=== PATIENT | female | born 1940 | race African-American/Black ===

== ENCOUNTER 2017-09-22 17:42 | Inpatient (IN) | payer OTHER ==
--- NOTE | 2017-09-22 19:21 | PDOC ---
History of Present Illness - General Chief Complaint: Rash Stated Complaint: RASH Time Seen by Provider: 09/22/17 18:25 History Source: Patient Exam Limitations: No Limitations - History of Present Illness Initial Comments: 09/22/17 19:17 Patient is a 77-year-old female history of diabetes, hypertension and high cholesterol, anorexia, refusing to eat only takes ensure. Brought in by daughter for evaluation of large ulceration to buttock and vagina. Patient is incontinent of urine and bowel. Denies fever. Past Medical History: Denies. Allergies: No known allergies Medications: See medication list Family History: Non-contributory Social History: Denies smoking, alcohol use, or IVDU Review of Systems GENERAL/CONSTITUTIONAL: No fever or chills. No weakness. No weight change. HEAD, EYES, EARS, NOSE AND THROAT: No change in vision. No ear pain or discharge. No sore throat. CARDIOVASCULAR: No chest pain or shortness of breath. RESPIRATORY: No cough, wheezing, or hemoptysis. GASTROINTESTINAL: No nausea, vomiting, diarrhea or constipation. No rectal bleeding. GENITOURINARY: No dysuria, frequency, or change in urination. MUSCULOSKELETAL: No joint or muscle swelling or pain. No neck or back pain. SKIN : Rash and ulceration to buttock and groin Physical Exam: GENERAL: The patient is awake, alert, and fully oriented, in no acute distress. EYES: Pupils equal, round and reactive to light, extraocular movements intact, sclera anicteric, conjunctiva clear. ENT: Ears normal, nares patent, oropharynx clear without exudates. Moist mucous membranes. No uvula deviation NECK: Normal range of motion, supple without lymphadenopathy, JVD, or masses. LUNGS: Breath sounds equal, clear to auscultation bilaterally. No wheezes, and no crackles. HEART: Regular rate and rhythm, normal S1 and S2 without murmur, rub or gallop. ABDOMEN: Soft, nontender, normoactive bowel sounds. No guarding, no rebound. No masses. No bruising or abrasions RECTAL : Unable to assess due to physical limitations in fast track, patient unable to lay down on examination table MUSCULOSKELETAL: Normal range of motion, no edema. No clubbing or cyanosis. No cords, erythema, or tenderness. No CVA Tenderness with fist. NEUROLOGICAL: Cranial nerves II through XII grossly intact. Normal speech, normal gait. SKIN: Warm, Dry, normal turgor, no rashes or lesions noted. Large stage IV pressure ulcer to buttock extending to vagina unable to assess size due to physical limitations in environment in fast track sent to main emergency department for higher level of care and evaluation Past History - Past Medical History Allergies/Adverse Reactions: Allergies Allergy/AdvReac Type Severity Reaction Status Date / Time No Known Allergies Allergy Verified 09/22/17 17:44 Home Medications: Ambulatory Orders Carvedilol [Coreg] 6.25 mg PO BID 12/17/14 Colesevelam HCl [Welchol] 625 mg PO BID 12/17/14 Cyanocobalamin [Vitamin B12 -] 1,000 mcg PO DAILY 12/17/14 Ergocalciferol (Vitamin D2) [Vitamin D2] 50,000 unit PO WEEKLY 12/17/14 Furosemide [Lasix -] 20 mg PO DAILY 12/17/14 Irbesartan 300 mg PO DAILY 12/17/14 Metformin HCl 850 mg PO DAILY 12/17/14 Risedronate Sodium [Actonel (Once-a-week)] 35 mg PO Q7D 12/17/14 Sitagliptin Phosphate [Januvia] 100 mg PO DAILY 12/17/14 Nicotine Patch [Nicoderm Patch -] 14 mg TD DAILY #30 patch 12/27/14 Rivaroxaban [Xarelto -] 15 mg PO BID #42 tab 12/27/14 Atorvastatin Ca [Lipitor] 20 mg NR ASDIR 09/22/17 Anemia: No Asthma: No Cancer: No Cardiac Disorders: No CVA: No COPD: No CHF: No Dementia: No Diabetes: Yes GI Disorders: No Disorders: No HTN: Yes Hypercholesterolemia: Yes Liver Disease: No Seizures: No Thyroid Disease: No - Surgical History Abdominal Surgery: No Appendectomy: No Cardiac Surgery: No Cholecystectomy: No Lung Surgery: No Neurologic Surgery: No Orthopedic Surgery: No - Immunization History Immunization Up to Date: No - Suicide/Smoking/Psychosocial Hx Smoking History: Current every day smoker Have you smoked in the past 12 months: Yes Number of Cigarettes Smoked Daily: 10 Information on smoking cessation initiated: No 'Breaking Loose' booklet given: 12/18/14 Hx Alcohol Use: Yes Drug/Substance Use Hx: No Substance Use Type: None Hx Substance Use Treatment: No *Physical Exam - Vital Signs Last Vital Signs Temp Pulse Resp BP Pulse Ox 98.6 F 98 H 20 150/83 100 09/22/17 17:45 09/22/17 17:45 09/22/17 17:45 09/22/17 17:45 09/22/17 17:45 Medical Decision Making - Medical Decision Making 09/22/17 19:21 A/P: Patient here for evaluation of stage IV decubitus ulcer to buttock extending to vagina unable to assess size because of physical restraints in fast track, patient unable to lay down on examination table. Patient sent to main emergency department for higher level care and evaluation. Case discussed with Karen charge nurse.
[2017-09-22] MEDS ORDERED: SODIUM CHLORIDE 1,000 ML IV STA (23:07)
[2017-09-22] MEDS ORDERED: PIPERACIL/TAZOB 3.375 GM 3.375 GM/50 ML PREMIX IVPB ONE (23:09)
[2017-09-22] MEDS ORDERED: VANCOMYCIN 1 GRAM (PRE-DOCKED) 1,000 MG/250 ML BAG IVPB ONE (23:09)
--- NOTE | 2017-09-22 23:10 | PDOC ---
*Physical Exam - Vital Signs Last Vital Signs Temp Pulse Resp BP Pulse Ox 98.6 F 98 H 20 150/83 100 09/22/17 17:45 09/22/17 17:45 09/22/17 17:45 09/22/17 17:45 09/22/17 17:45 - Physical Exam Comments: 09/23/17 00:31 The patient is a 77 year old female, with a significant past medical history of HTN, HLD, DM , EtOH abuse who presents to the emergency department with worsening vaginal and perirectal abscess. Patients daughter at bedside states the patient has been developing these ulcers for the past 2 months. Patient is incontinent of urine and bowel. Patient denies any fever, chills, nausea, vomiting,abdominal pain. ADULT EXAM GENERAL: Awake, alert, and fully oriented, in no acute distress HEAD: No signs of trauma EYES: PERRLA, EOMI, sclera anicteric, conjunctiva clear ENT: Auricles normal inspection, hearing grossly normal, nares patent, oropharynx clear without exudates. Moist mucosa NECK: Normal ROM, supple, no lymphadenopathy, JVD, or masses LUNGS: Breath sounds equal, clear to auscultation bilaterally. No wheezes, and no crackles HEART: Regular rate and rhythm, normal S1 and S2, no murmurs, rubs or gallops ABDOMEN: Soft, nontender, normoactive bowel sounds. No guarding, no rebound. No masses EXTREMITIES: Normal range of motion, no edema. No clubbing or cyanosis. No cords, erythema, or tenderness NEUROLOGICAL: Cranial nerves II through XII grossly intact. Normal speech, normal gait SKIN: Large perirectal abscess. Stage III decubiti involving robby anal ,robby vulvar and perineal area on the R side. Warm, Dry, normal turgor, no rashes or lesions noted. <Marce Mcqueen - Last Filed: 09/23/17 00:30> - Vital Signs Last Vital Signs Temp Pulse Resp BP Pulse Ox 98.6 F 98 H 20 150/83 100 09/22/17 17:45 09/22/17 17:45 09/22/17 17:45 09/22/17 17:45 09/22/17 17:45 <Fam Sibley - Last Filed: 09/23/17 01:21> ED Treatment Course - LABORATORY CBC & Chemistry Diagram: 09/22/17 23:45 09/22/17 23:45 <Marce Mcqueen - Last Filed: 09/23/17 00:30> - LABORATORY CBC & Chemistry Diagram: 09/22/17 23:45 09/22/17 23:45 - RADIOLOGY Radiology Studies Ordered: Category Date Time Status CHEST X-RAY PORTABLE* [RAD] Stat Radiology 09/22/17 23:07 Ordered <Fam Sibley - Last Filed: 09/23/17 01:21> Medical Decision Making - Medical Decision Making 09/22/17 23:55 Dr. Mayda holden via phone answering service. Patient's case discussed. 09/23/17 00:33 Documentation prepared by Marce Mcqueen, acting as medical review specialist for Fam Sibley MD/. <Marce Mcqueen - Last Filed: 09/23/17 00:30> *DC/Admit/Observation/Transfer <Marce Mcqueen - Last Filed: 09/23/17 00:30> - Attestations Physician Attestion: 09/22/17 23:10 I, Dr. Fam Sibley, attest that this document has been prepared under my direction and personally reviewed by me in its entirety. I further attest, that it accurately reflects all work, treatment, procedures and medical decision -making performed by me. <Fam Sibley - Last Filed: 09/23/17 01:21> Diagnosis at time of Disposition: Sacral decubitus ulcer, stage III, Perirectal cellulitis Alcohol dependence Qualifiers: Substance use status: uncomplicated Qualified Code(s): F10.20 - Alcohol dependence, uncomplicated; F10.20 - Alcohol dependence, uncomplicated; F10.20 - Alcohol dependence, uncomplicated Alcohol withdrawal syndrome Qualifiers: Complication of substance-induced condition: uncomplicated Qualified Code(s): F10.230 - Alcohol dependence with withdrawal, uncomplicated; F10.230 - Alcohol dependence with withdrawal, uncomplicated; F10.230 - Alcohol dependence with withdrawal, uncomplicated - Referrals Referrals: STAFF,NOT ON [Primary Care Provider] -
[2017-09-22] MEDS ORDERED: FOLIC ACID INJECTION - 1 MG, THIAMINE HCL 100 MG, MULTIVIT INJECTION ADULT 10 ML in SOD... IVPB ONE (23:49)
[2017-09-22] MEDS ORDERED: LORazepam 2 MG/ML SDV VIAL IVPUSH ONE (23:50)
[2017-09-22] MEDS ORDERED: CLINDAMYCIN 600MG PREMIX IVPB 50 ML IVPB ONE (23:57)
[2017-09-23 00:09] LABS: BASOPHIL 0.4 % (0-2.0); EOSINOPHIL 0.3 % (0-4.5); MCH 30.2 pg (25.7-33.7); MCHC 32.8 g/dl (32.0-36.0); MEAN PLT VOLUME 9.5 fl (7.5-11.1); NEUTROPHILS 73.8 % (42.8-82.8); PLATELET COUNT 365 K/MM3 (134-434); RDW 14.4 % (11.6-15.6); WHITE BLOOD COUNT 6.5 K/mm3 (4.0-10.0)
[2017-09-23] MEDS ORDERED: VANCOMYCIN 1 GRAM (PRE-DOCKED) 250 ML IVPB ONE (00:19)
[2017-09-23] MEDS ORDERED: PIPERACILLIN/TAZOB 3.375 GM 50 ML IVPB ONE (00:19)
[2017-09-23 00:24] LABS: VENOUS BLOOD GAS HCO3 23.3 meq/L (19-25); VENOUS PH 7.34 (7.32-7.42)
[2017-09-23 02:32] LABS: INR 1.08 (0.82-1.09); PROTHROMBIN TIME (PATIENT) 12.2 SEC (9.98-11.88)
[2017-09-23 02:35] LABS: ACTIVATED PTT 31.9 SECONDS (26.9-34.4)
[2017-09-23 02:44] LABS: ALBUMIN 2.7 g/dl (3.4-5.0); ALK PHOS 105 U/L (45-117); ANION GAP 12 (8-16); BILIRUBIN,TOTAL 0.5 mg/dL (0.2-1.0); C-REACTIVE PROTEIN 6.4 MG/DL (0.00-0.3); CALCIUM 9.2 mg/dL (8.5-10.1); CO2 25 mmol/L (21-32); CREATININE 0.6 mg/dL (0.55-1.02); GLUCOSE,RANDOM 133 mg/dL (74-106); SGOT/AST 17 U/L (15-37); SGPT/ALT 11 U/L (12-78); TOT PROT 8.5 g/dl (6.4-8.2)
[2017-09-23 02:47] LABS: CPK 38 IU/L (26-192); TROPONIN I < 0.02 ng/ml (0.00-0.05)
--- NOTE | 2017-09-23 04:18 | HP ---
CHIEF COMPLAINT: ulceration to perianal area PCP: Dr. Reina Thomas Darby HISTORY OF PRESENT ILLNESS: This is a 77 year old female with a past medical history significant for DM who presents with ulceration to perianal area. Pt and daughter report that she has had this for at least about 2months but only recently has it started causing her pain and the daughter reports there was some bleeding today and that prompted her to bring her mother into the hospital. Daughter reports mother hasn 't been taking any of her medications for quite some time although the pt reports last taking her medication a few days ago. Daughter also reports mother does not eat hardly at all or drink much water. Pt states that she drinks 3 ensures per day with little other intake. ER course was notable for: (1) CRP 6.4, ESR 106 (2) CT abd and pelvis with no focal drainable fluid collection (3) WBC 6.5, Lactic acid 1.9 Recent Travel: pt denies PAST MEDICAL HISTORY: DM HTN HLD DVT 2014 PAD PAST SURGICAL HISTORY: R superficial femoral artery angioplasty and stent placement 2014 Social History: Smokin/4 ppd Alcohol: 3 drinks 2-3 times per week, last drink on Tuesday Drugs: pt denies Family History: mother age 62, unknown, ? cancer father age 70, h/o COPD sister age 58, heart problem son with DM daughter with RA, HTN Allergies No Known Allergies Allergy (Verified 09/22/17 17:44) HOME MEDICATIONS: 3 Medication Instructions Recorded Carvedilol [Coreg] 6.25 mg PO BID 12/17/14 Colesevelam HCl [Welchol] 625 mg PO BID 12/17/14 Cyanocobalamin [Vitamin B12 -] 1,000 mcg PO DAILY 12/17/14 Ergocalciferol (Vitamin D2) 50,000 unit PO WEEKLY 12/17/14 [Vitamin D2] Furosemide [Lasix -] 20 mg PO DAILY 12/17/14 Irbesartan 300 mg PO DAILY 12/17/14 Metformin HCl 850 mg PO DAILY 12/17/14 Risedronate Sodium [Actonel 35 mg PO Q7D 12/17/14 (Once-a-week)] Sitagliptin Phosphate [Januvia] 100 mg PO DAILY 12/17/14 Nicotine Patch [Nicoderm Patch -] 14 mg TD DAILY #30 patch 01/30/15 Rivaroxaban [Xarelto -] 15 mg PO BID #42 tab 12/27/14 Atorvastatin Ca [Lipitor] 20 mg NR ASDIR 09/22/17 REVIEW OF SYSTEMS CONSTITUTIONAL: Present: malaise, loss of appetite Absent: fever, chills, diaphoresis, generalized weakness, weight change HEENT: Absent: rhinorrhea, nasal congestion, throat pain, throat swelling, difficulty swallowing, mouth swelling, ear pain, eye pain, visual changes CARDIOVASCULAR: Absent: chest pain, syncope, palpitations, irregular heart rate, lightheadedness , peripheral edema RESPIRATORY: Absent: cough, shortness of breath, dyspnea with exertion, orthopnea, wheezing, stridor, hemoptysis GASTROINTESTINAL: Absent: abdominal pain, abdominal distension, nausea, vomiting, diarrhea, constipation, melena, hematochezia GENITOURINARY: Absent: dysuria, frequency, urgency, hesitancy, hematuria, flank pain, genital pain MUSCULOSKELETAL: Absent: myalgia, arthralgia, joint swelling, back pain, neck pain SKIN: Present: "ulcer" to perineal area Absent: rash, itching, pallor HEMATOLOGIC/IMMUNOLOGIC: Absent: easy bleeding, easy bruising, lymphadenopathy, frequent infections ENDOCRINE: Absent: unexplained weight gain, unexplained weight loss, heat intolerance, cold intolerance NEUROLOGIC: Absent: headache, focal weakness or paresthesias, dizziness, unsteady gait, seizure, mental status changes, bladder or bowel incontinence PSYCHIATRIC: Absent: anxiety, depression, suicidal or homicidal ideation. no tactile disturbances or visual or auditory hallucinations reported PHYSICAL EXAMINATION Vital Signs - 24 hr 3 09/22/17 09/22/17 17:45 22:52 Temperature 98.6 F Pulse Rate 98 H Respiratory 20 Rate Blood Pressure 150/83 O2 Sat by Pulse 100 100 Oximetry (%) GENERAL: Awake, alert, and fully oriented, in no acute distress. + cachexia HEAD: Normal with no signs of trauma. EYES: Pupils equal, round and reactive to light, extraocular movements intact, sclera anicteric, conjunctiva clear. No lid lag. EARS, NOSE, THROAT: Ears normal, nares patent, oropharynx clear without exudates. Moist mucous membranes. NECK: Normal range of motion, supple without lymphadenopathy, JVD, or masses. LUNGS: Breath sounds equal, clear to auscultation bilaterally. No wheezes, and no crackles. No accessory muscle use. HEART: Regular rate and rhythm, normal S1 and S2 without murmur, rub or gallop. ABDOMEN: Soft, nontender, not distended, normoactive bowel sounds, no guarding, no rebound, no masses. No hepatomegaly or splenomegaly. Perianal and right distal labia noted with large growth, skin noted veruccal, pink, areas of friability. No definite area of abscess or fluid collection but noted with a brownish discharge. vagina noted with whitish discharge. MUSCULOSKELETAL: Normal range of motion at all joints. No bony deformities or tenderness. No CVA tenderness. UPPER EXTREMITIES: 2+ pulses, warm, well-perfused. No cyanosis. No clubbing. No peripheral edema. LOWER EXTREMITIES: 2+ pulses, warm, well-perfused. No calf tenderness. No peripheral edema. NEUROLOGICAL: Cranial nerves II-XII intact. Normal speech. slightly unsteady gait. no tremors noted PSYCHIATRIC: Cooperative. Good eye contact. Appropriate mood and affect. SKIN: Warm, dry, poor turgor, normal capillary refill. Laboratory Results - last 24 hr 3 09/22/17 09/22/17 09/22/17 23:45 23:45 23:45 WBC 6.5 D RBC 4.27 Hgb 12.9 D Hct 39.3 MCV 92.0 MCH 30.2 MCHC 32.8 RDW 14.4 Plt Count 365 D MPV 9.5 D Neutrophils % 73.8 D Lymphocytes % 18.8 D Monocytes % 6.7 Eosinophils % 0.3 D Basophils % 0.4 ESR PT with INR Cancelled INR Cancelled PTT (Actin FS) Cancelled VBG pH POC VBG pCO2 POC VBG pO2 Mixed VBG HCO3 Sodium Cancelled Potassium Cancelled Chloride Cancelled Carbon Dioxide Cancelled Anion Gap Cancelled BUN Cancelled Creatinine Cancelled Creat Clearance w eGFR Cancelled Random Glucose Cancelled Lactic Acid Calcium Cancelled Total Bilirubin Cancelled AST Cancelled ALT Cancelled Alkaline Phosphatase Cancelled Creatine Kinase Cancelled Troponin I Cancelled C-Reactive Protein Total Protein Cancelled Albumin Cancelled Alcohol, Quantitative Blood Type Antibody Screen Spec Expiration Date 3 09/22/17 09/23/17 09/23/17 23:45 00:05 02:05 WBC RBC Hgb Hct MCV MCH MCHC RDW Plt Count MPV Neutrophils % Lymphocytes % Monocytes % Eosinophils % Basophils % ESR Cancelled 106 H PT with INR 12.20 H INR 1.08 PTT (Actin FS) 31.9 D VBG pH 7.34 POC VBG pCO2 45.0 POC VBG pO2 37.2 Mixed VBG HCO3 23.3 Sodium 138 Potassium 4.1 Chloride 101 Carbon Dioxide 25 Anion Gap 12 BUN 12 Creatinine 0.6 Creat Clearance w eGFR > 60 Random Glucose 133 H Lactic Acid 1.9 Calcium 9.2 Total Bilirubin 0.5 D AST 17 D ALT 11 L D Alkaline Phosphatase 105 D Creatine Kinase 38 Troponin I < 0.02 C-Reactive Protein 6.4 H Total Protein 8.5 H D Albumin 2.7 L Alcohol, Quantitative < 5.0 Blood Type B POSITIVE Antibody Screen Negative Spec Expiration Date Radiology Reports CT abdomen and pelvis without contrast THIS IS A PRELIMINARY REPORT FROM [facility] Impression: Soft tissue thickening in the cutaneous surface and subcutaneous fat surrounding the anus and perineum. Findings suggest presence cellulitis and possibly perianal fistulas. Correlation with history and exam is recommended. Nephrolithiasis THIS DOCUMENT HAS BEEN ELECTRONICALLY SIGNED Marvin New MD 09/23/2017 00:53 EST ECG NSR, vent rate 63 QTC 442 TWI noted lead 3, v4, flattened v5 ASSESSMENT/PLAN: 77yF with PMH DM, HTN, HLD, PAD, DVT presented to the ED with ulceration to perianal area. She is being admitted for further evaluation and treatment. Growth to perianal area, ? HPV vs neoplastic process with superimposed cellulitis - cont antibiotics as recommended by ID - ID consult - Surgical consult DM - hold oral hypoglycemics while inpatient - BGM ACHS with novolog sliding scale - A1C in am HTN - restart home coreg and irbesartan - monitor BP and adjust doses as indicated HLD - restart home lipitor DVT - restart home xarelto Alcohol abuse - unclear if dependent, pt denies ever getting shaky when she does not drink - will monitor for withdrawal Malnutrition - as evidenced by temporal wasting, more pronounce bony prominences and loss of SC fat - sheet combining operator evaluation FEN - NS @ 100cc/hr x 1 liter then reassess - BMP with mg and phos in am - diabetic diet as tolerated Dispo: Pt currently requires inpatient management of her emergent condition. Visit type - Emergency Visit Emergency Visit: Yes ED Registration Date: 09/22/17 Care time: The patient presented to the Emergency Department on the above date and was hospitalized for further evaluation of their emergent condition. - New Patient This patient is new to me today: Yes Date on this admission: 09/23/17 - Critical Care Critical Care patient: No
[2017-09-23] MEDS ORDERED: SODIUM CHLORIDE 1,000 ML IV SCH ×2 (04:30→04:54)
[2017-09-23] MEDS ORDERED: HEPARIN NA (PORCINE) 5,000 UNITS/ML 1ML VIAL IVPUSH PRN ×2 (07:15)
[2017-09-23] MEDS ORDERED: HEPARIN - 25,000 UNIT in SODIUM CHLORIDE 495 ML IV SCH (08:00)
[2017-09-23] MEDS: CLINDAMYCIN 600MG PREMIX IVPB 50 ML IVPB SCH ×3 (08:10→17:32)
[2017-09-23] MEDS ORDERED: CLINDAMYCIN PHOSPHATE 600 MG/4 ML VIAL ONE (08:14)
[2017-09-23] MEDS ORDERED: HEPARIN INFUSION - 500 ML IVPB ONE (08:15)
[2017-09-23] MEDS ORDERED: CLINDAMYCIN 600MG PREMIX IVPB 50 ML IVPB ONE (08:17)
[2017-09-23] MEDS: INSULIN SLIDING SCALE (NOVOLOG) 1 VIAL SQ SCH ×4 (08:41→21:48)
[2017-09-23 08:55] LABS: URINE APPEARANCE CLOUDY; URINE BILIRUBIN NEGATIVE (NEGATIVE); URINE BLOOD NEGATIVE (NEGATIVE); URINE GLUCOSE (UA) NEGATIVE (NEGATIVE); URINE KETONE TRACE (NEGATIVE); URINE NITRITE NEGATIVE (NEGATIVE); URINE PROTEIN NEGATIVE (NEGATIVE); URINE UROBILINOGEN NEGATIVE mg/dL (0.2-1.0)
[2017-09-23 08:59] LABS: URINE COLOR YELLOW
[2017-09-23] MEDS ORDERED: ERGOCALCIFEROL (VITAMIN D2) 50,000 UNIT CAPSULE (FP) PO SCH (10:00)
[2017-09-23] MEDS ORDERED: RIVAROXABAN 15 MG TABLET PO SCH (10:00)
--- NOTE | 2017-09-23 10:03 | EKG ---
Test Reason : Blood Pressure : / mmHG Vent. Rate : 063 BPM Atrial Rate : 063 BPM P-R Int : 164 ms QRS Dur : 070 ms QT Int : 432 ms P-R-T Axes : 077 -04 015 degrees QTc Int : 442 ms NORMAL SINUS RHYTHM CANNOT RULE OUT INFERIOR INFARCT , AGE UNDETERMINED Confirmed by JONATHAN GAVIN MD ([id number]) on 09/23/2017 10:03:13 AM Referred By: Confirmed By:JONATHAN GAVIN MD
[2017-09-23 10:41] LABS: BASOPHIL 0.5 % (0-2.0); EOSINOPHIL 0.7 % (0-4.5); MCH 30.4 pg (25.7-33.7); MEAN CELL VOLUME 92.3 fl (80-96); MEAN PLT VOLUME 9.8 fl (7.5-11.1); NEUTROPHILS 71.7 % (42.8-82.8); PLATELET COUNT 336 K/MM3 (134-434); RDW 13.8 % (11.6-15.6); WHITE BLOOD COUNT 6.5 K/mm3 (4.0-10.0)
[2017-09-23 10:53] LABS: ANION GAP 13 (8-16); CALCIUM 9.3 mg/dL (8.5-10.1); CO2 22 mmol/L (21-32); CREATININE 0.7 mg/dL (0.55-1.02); GLUCOSE,RANDOM 131 mg/dL (74-106); MAGNESIUM 1.8 mg/dL (1.8-2.4); PHOSPHOROUS 3.2 mg/dL (2.5-4.9)
[2017-09-23 10:54] LABS: ANION GAP 10 (8-16); CALCIUM 8.7 mg/dL (8.5-10.1); CO2 26 mmol/L (21-32); CREATININE 0.6 mg/dL (0.55-1.02); GLUCOSE,RANDOM 123 mg/dL (74-106); MAGNESIUM 1.6 mg/dL (1.8-2.4); PHOSPHOROUS 2.9 mg/dL (2.5-4.9)
[2017-09-23] MEDS: CARVEDILOL 6.25 MG TABLET (FP) PO SCH ×2 (11:17→21:42)
[2017-09-23] MEDS: LOSARTAN POTASSIUM 100 MG TABLET PO SCH (11:18)
[2017-09-23] MEDS: CYANOCOBALAMIN 1,000 MCG TABLET (FP) PO SCH (11:18)
--- NOTE | 2017-09-23 15:12 | PN ---
Physical Exam: SUBJECTIVE: Patient is a 77 year old female with a pmh of DM, HTN, HLD, DVT in 2015, PAD s/ p R superficial femoral artery angioplasty and stent placement in 2015 who presents for a 1 year history of mass and ulceration in the perianal area. Patient is seen with her daughter at bedside, who brought her in because she noticed some bleeding in the patient. Daughter states that she has not seen a physician about this issue in the past. Daughter reports that the patient has not been taking her medications in a long time, has not been eating or drinking much at all, and has been losing > 20 pounds in the last year. Patient states that she has been constipated for 3 days. Patient denies chest pain, SOB, nausea , vomiting, diarrhea. OBJECTIVE: Vital Signs Period Temp Pulse Resp BP Sys/Peralta Pulse Ox Last 24 Hr 98.5 F-98.7 F 67-77 18-20 148-180/71-85 100-100 GENERAL: The patient is awake, alert, and fully oriented, in no acute distress. HEAD: Normal with no signs of trauma. EYES: PERRL, extraocular movements intact, sclera anicteric, conjunctiva clear. No ptosis. LUNGS: Breath sounds equal, clear to auscultation bilaterally, no wheezes, no crackles, no accessory muscle use. HEART: Regular rate and rhythm, S1, S2 without murmur, rub or gallop. ABDOMEN: Soft, nontender, nondistended, normoactive bowel sounds, no guarding, no rebound, no hepatosplenomegaly, no masses. EXTREMITIES: 2+ pulses, warm, well-perfused, no edema. Urogenital: large, 4-5 cm fungating, friable mass located on the perineal region. The majority of the mass is located on the R side of gluteal cleft and loops around the anus to the other L side. She has masses arising inside the anus as well Laboratory Results - last 24 hr 09/23/17 09/23/17 09/23/17 08:36 10:00 10:00 WBC 6.5 RBC 3.91 Hgb 11.9 Hct 36.1 MCV 92.3 MCH 30.4 MCHC 33.0 RDW 13.8 Plt Count 336 MPV 9.8 Neutrophils % 71.7 Lymphocytes % 17.8 Monocytes % 9.3 Eosinophils % 0.7 D Basophils % 0.5 Sodium 139 Potassium 3.8 Chloride 103 Carbon Dioxide 26 Anion Gap 10 BUN 9 D Creatinine 0.6 POC Glucometer [id number] Random Glucose 123 H Calcium 8.7 Phosphorus 2.9 Magnesium 1.6 L Stool Occult Blood 09/23/17 11:40 WBC RBC Hgb Hct MCV MCH MCHC RDW Plt Count MPV Neutrophils % Lymphocytes % Monocytes % Eosinophils % Basophils % Sodium Potassium Chloride Carbon Dioxide Anion Gap BUN Creatinine POC Glucometer Random Glucose Calcium Phosphorus Magnesium Stool Occult Blood Negative Active Medications Generic Name Dose Route Start Last Admin Trade Name Freq PRN Reason Stop Dose Admin Atorvastatin Calcium 20 mg 09/23/17 22:00 Lipitor - PO HS DENICE Carvedilol 6.25 mg 09/23/17 10:00 09/23/17 11:17 Coreg - PO 6.25 mg BID DENICE Administration Cyanocobalamin 1,000 mcg 09/23/17 10:00 09/23/17 11:18 Vitamin B12 - PO 1,000 mcg DAILY DENICE Administration Ergocalciferol 50,000 unit 09/23/17 10:00 09/23/17 11:45 Drisdol - PO 50,000 unit Q7D@1000 DENICE Administration Heparin Sodium (Porcine) 1,000 unit 09/23/17 07:15 Heparin - IVPUSH PRN PRN Heparin Heparin Sodium (Porcine) 5,000 unit 09/23/17 07:15 Heparin - IVPUSH PRN PRN Heparin Clindamycin Phosphate 50 mls @ 100 mls/hr 09/23/17 06:00 09/23/17 09:23 Cleocin 600 Mg Premix Ivpb - IVPB 100 mls/hr Q6H-IV DENICE Administration Heparin Sodium (Porcine) 25, 500 mls @ 16 mls/hr 09/23/17 08:00 09/23/17 08:22 000 unit/ Sodium Chloride IV 16 mls/hr TITR DENICE Administration Protocol 800 UNIT/HR Insulin Aspart 1 vial 09/23/17 07:00 09/23/17 11:32 Novolog Vial Sliding Scale - SQ 2 units ACHS DENICE Administration Protocol Losartan Potassium 100 mg 09/23/17 10:00 09/23/17 11:18 Losartan Potassium PO 100 mg DAILY DENICE Administration Non-Formulary Medication 625 mg 09/23/17 10:00 Colesevelam Hcl [Welchol] PO BID DENICE ASSESSMENT/PLAN: 77 year old female with a pmh of DM, HTN, HLD, DVT, PAD presents with perineal mass and failure to thrive. 1. 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 Fields 2. Failure to Thrive: -add Ensure to meals 3. Diabetes Mellitus: blood sugars controlled -insulin sliding scale to control BG -f/u A1C 4. Hypertension: Controlled -cont coreg + irbesartan 5. DVT and Stent hx -f/u vascular surgery consult -heparin 5000 IV push 6. Hyperlipidemia: restart home lipitor 7. FEN: -no standing fluids -mag low- replete -ensures added to diabetic diet 8. Proph: -heparin 9. Dispo: -monitor inpatient -plan for NPO Tuesday to be taken to OR tuesday Visit type - Emergency Visit Emergency Visit: No - New Patient This patient is new to me today: No - Critical Care Critical Care patient: No
[2017-09-23 15:38] VITALS: BMI 18.0
--- NOTE | 2017-09-23 15:42 | CON.ID ---
Consult Consult Specialty:: infectious diseases Referred by:: Reason for Consultation:: perianal mass ,swelling - History of Present Illness Chief Complaint: perianal swelling /mass bleeding History of Present Illness: Spoke with the family member who gave the history.daughter according to ther this 71 odd year femal has been having this growth around the perianal region for quite a long time about a year or so,what was noticed differently was that she started having bleeding since last 2 days which was one of the reasons the patient came to the hospital the other thing mentioned by her is that the patient has not had a bowel movement for 2 weeks she herself is no gross distress and has no major complaints patient was given abx in the emergency room patient is also c/o of pain over the vulvar region - History Source History Provided By: Family Member Limitations to Obtaining History: Poor Historian - Past Medical History Cardio/Vascular: Yes: HTN, Hyperlipdemia Endocrine: Yes: Diabetes Mellitus - Alcohol/Substance Use Hx Alcohol Use: Yes - Smoking History Smoking history: Current every day smoker Have you smoked in the past 12 months: Yes Aproximately how many cigarettes per day: 20 - Social History ADL: Independent History of Recent Travel: No Home Medications - Allergies Allergies/Adverse Reactions: Allergies Allergy/AdvReac Type Severity Reaction Status Date / Time No Known Allergies Allergy Verified 09/22/17 17:44 - Home Medications Home Medications: Ambulatory Orders Carvedilol [Coreg] 6.25 mg PO BID 12/17/14 Colesevelam HCl [Welchol] 625 mg PO BID 12/17/14 Cyanocobalamin [Vitamin B12 -] 1,000 mcg PO DAILY 12/17/14 Ergocalciferol (Vitamin D2) [Vitamin D2] 50,000 unit PO WEEKLY 12/17/14 Furosemide [Lasix -] 20 mg PO DAILY 12/17/14 Irbesartan 300 mg PO DAILY 12/17/14 Metformin HCl 850 mg PO DAILY 12/17/14 Risedronate Sodium [Actonel (Once-a-week)] 35 mg PO Q7D 12/17/14 Sitagliptin Phosphate [Januvia] 100 mg PO DAILY 12/17/14 Nicotine Patch [Nicoderm Patch -] 14 mg TD DAILY #30 patch 12/27/14 Rivaroxaban [Xarelto -] 15 mg PO BID #42 tab 01/30/15 Atorvastatin Ca [Lipitor] 20 mg NR ASDIR 09/22/17 Review of Systems - Review of Systems Constitutional: reports: No Symptoms Eyes: reports: No Symptoms HENT: reports: No Symptoms Neck: reports: No Symptoms Cardiovascular: reports: No Symptoms Respiratory: reports: No Symptoms Gastrointestinal: reports: No Symptoms Genitourinary: reports: Lesions (perianal region fungating mass with bleed), Pain (vulvular region) Musculoskeletal: reports: No Symptoms Integumentary: reports: No Symptoms Neurological: reports: No Symptoms Endocrine: reports: No Symptoms Hematology/Lymphatic: reports: No Symptoms Psychiatric: reports: No Symptoms Physical Exam Vital Signs: Vital Signs Temperature 97.8 F 09/23/17 15:32 Pulse Rate 55 L 09/23/17 15:32 Respiratory Rate 16 09/23/17 15:32 Blood Pressure 167/68 09/23/17 15:32 O2 Sat by Pulse Oximetry (%) 100 09/23/17 13:03 Constitutional: Yes: Thin Eyes: Yes: Conjunctiva Clear Cardiovascular: Yes: Regular Rate and Rhythm Respiratory: Yes: Regular, CTA Bilaterally Gastrointestinal: Yes: Normal Bowel Sounds, Soft Renal/: Yes: Baez Present Musculoskeletal: Yes: WNL Extremities: Yes: WNL Integumentary: Yes: Other (perianal fungating mass present) Wound/Incision: Yes: Open to air Neurological: Yes: Alert, Oriented Psychiatric: Yes: Alert, Oriented Labs: CBC, BMP 09/23/17 10:00 09/23/17 10:00 Imaging - Results Chest X-ray: Report Reviewed, Image Reviewed Cat Scan: Report Reviewed, Image Reviewed Assessment/Plan this patient with multiple medical problems who comes with perianal mass with bleeding,currently stable this could be several things which include malignancy condyloma possibly scc patient being evaluated by surgery plan is for biopsy i think either way will need resection as it is bleeding from abx point of view i am bit worried about her vulvar tenderness patient has already got iv abx plan would try on oral abx augmentin 875 mg bid clinda 300 mg every 8 hourly rest as per primary team
--- NOTE | 2017-09-23 15:46 | CONSULT ---
- Consultation REQUESTING PROVIDER: AVA Garibay CONSULT REQUEST: We have been asked to surgically evaluate this patient for evaluation and management of an extensive perianal/perineal lesion. PCP:Phillip Daniel MD HISTORY OF PRESENT ILLNESS:Unknown; h/e recently discovered lesion(s) of the perineum/perirectal area of unknown duration. PMHx: NIDDM; hyperlipidemia; osteoporosis PSHx: unknown Home Medications Medication Instructions Recorded Carvedilol [Coreg] 6.25 mg PO BID 12/17/14 Colesevelam HCl [Welchol] 625 mg PO BID 12/17/14 Cyanocobalamin [Vitamin B12 -] 1,000 mcg PO DAILY 12/17/14 Ergocalciferol (Vitamin D2) 50,000 unit PO WEEKLY 12/17/14 [Vitamin D2] Furosemide [Lasix -] 20 mg PO DAILY 12/17/14 Irbesartan 300 mg PO DAILY 12/17/14 Metformin HCl 850 mg PO DAILY 12/17/14 Risedronate Sodium [Actonel 35 mg PO Q7D 12/17/14 (Once-a-week)] Sitagliptin Phosphate [Januvia] 100 mg PO DAILY 12/17/14 Nicotine Patch [Nicoderm Patch -] 14 mg TD DAILY #30 patch 12/27/14 Rivaroxaban [Xarelto -] 15 mg PO BID #42 tab 12/27/14 Atorvastatin Ca [Lipitor] 20 mg NR ASDIR 09/22/17 Allergies Allergy/AdvReac Type Severity Reaction Status Date / Time No Known Allergies Allergy Verified 09/22/17 17:44 PHYSICAL EXAM: GENERAL: Awake, alert, and fully oriented, in no acute distress. HEAD: Normal with no signs of trauma. EYES: sclera anicteric, conjunctiva clear. ABDOMEN: Soft, nontender, not distended, normoactive bowel sounds, no guarding, no rebound, no masses. No organomegaly. MUSCULOSKELETAL: Normal ROM at all joints. No bony deformities or tenderness. No CVA tenderness. UPPER EXTREMITIES: 2+ pulses, warm, well-perfused. No cyanosis. Cap refill <2 seconds. No peripheral edema. LOWER EXTREMITIES: 2+ pulses, warm, well-perfused. No calf tenderness. No peripheral edema. NEUROLOGICAL: Normal speech, gait not observed. PSYCH: Cooperative. Good eye contact. Appropriate mood and affect. SKIN: Warm, dry, normal turgor, extemsive perineal and perianal warty growth w/ o active bleeding and/or infection; ot ttp. RECTAL: GST; no mass; firm stool present. Vital Signs Temperature 97.8 F 09/23/17 15:31 Pulse Rate 55 L 09/23/17 15:31 Respiratory Rate 16 09/23/17 15:31 Blood Pressure 167/68 09/23/17 15:31 O2 Sat by Pulse Oximetry (%) 100 09/23/17 13:03 Lab Results WBC 6.5 K/mm3 (4.0-10.0) 09/23/17 10:00 RBC 3.91 M/mm3 (3.60-5.2) 09/23/17 10:00 Hgb 11.9 GM/dL (10.7-15.3) 09/23/17 10:00 Hct 36.1 % (32.4-45.2) 09/23/17 10:00 MCV 92.3 fl (80-96) 09/23/17 10:00 MCHC 33.0 g/dl (32.0-36.0) 09/23/17 10:00 RDW 13.8 % (11.6-15.6) 09/23/17 10:00 Plt Count 336 K/MM3 (134-434) 09/23/17 10:00 Sodium 139 mmol/L (136-145) 09/23/17 10:00 Potassium 3.8 mmol/L (3.5-5.1) 09/23/17 10:00 Chloride 103 mmol/L (98-107) 09/23/17 10:00 Carbon Dioxide 26 mmol/L (21-32) 09/23/17 10:00 Anion Gap 10 (8-16) 09/23/17 10:00 BUN 9 mg/dL (7-18) D 09/23/17 10:00 Creatinine 0.6 mg/dL (0.55-1.02) 09/23/17 10:00 Random Glucose 123 mg/dL (74-106) H 09/23/17 10:00 Calcium 8.7 mg/dL (8.5-10.1) 09/23/17 10:00 Blood Type B POSITIVE 09/23/17 02:05 Antibody Screen Negative 09/23/17 02:05 INR 1.08 (0.82-1.09) 09/23/17 02:05 CT scan a/p reviewed. IMP: extensive perineal/perianal lesion/growth; ddx includes malignancy possible SCC; BCC cloacagenic (doubt); and non malignant causes such as condylomata accuminata; HPV etc.; bx. in the OR would be necessary to make the dx. Would need to d/w the family; in the interim recommend perineal/perianal hygiene w/ sitz baths; keep npo after midnight Tuesday if family is aenable to bx.; will f/u. Robert Fields MD FACS Visit type - Case Type Case Type: ED Admission - Emergency Emergency Visit: Yes ED Registration Date: 09/23/17 Care time: The patient presented to the Emergency Department on the above date and was hospitalized for further evaluation of their emergent condition. - New patient This patient is new to me today: Yes Date on this admission: 09/23/17 - Critical Care Critical Care patient: No
--- NOTE | 2017-09-23 16:10 | PN ---
Teaching Attending Note Name of Resident: gJ Babcock ATTENDING PHYSICIAN STATEMENT I saw and evaluated the patient. I reviewed the resident's note and discussed the case with the resident. I agree with the resident's findings and plan as documented. SUBJECTIVE: Patient seen and examined. reports perirectal/perineal mass for about a year, thinks its due to her diaper. no fevers/chills. Has been taking a few meds, unsure which ones she is. OBJECTIVE: Vital Signs Period Temp Pulse Resp BP Sys/Peralta Pulse Ox Last 24 Hr 97.8 F-98.7 F 55-98 16-20 148-180/68-85 100-100 Intake & Output 09/20/17 09/21/17 09/22/17 09/23/17 23:59 23:59 23:59 23:59 Output Total 200 Balance -200 Weight 110 lb 118 lb 9 oz Genital/rectal - caulilflower like 3 cm oval mass in right perirectal area, extending into right lower labial region, adjacent ulceration with scant bleed over lower left perirectal area, no tenderness elicited on exam Lungs CTAB, no rales abdomen soft, NT, ND, positive bowel sounds Current Medications Amoxicillin/Clavulanate Potassium (Augmentin - 875mg Tablet) 1 tab PO BID@0800, 1730 [facility] Atorvastatin Calcium (Lipitor -) 20 mg PO HS [facility] Carvedilol (Coreg -) 6.25 mg PO BID [facility] Last Admin: 09/23/17 11:17 Dose: 6.25 mg Clindamycin HCl (Cleocin -) 300 mg PO Q6HPO [facility] Cyanocobalamin (Vitamin B12 -) 1,000 mcg PO DAILY [facility] Last Admin: 09/23/17 11:18 Dose: 1,000 mcg Ergocalciferol (Drisdol -) 50,000 unit PO Q7D@1000 [facility] Last Admin: 09/23/17 11:45 Dose: 50,000 unit Heparin Sodium (Porcine) (Heparin -) 1,000 unit IVPUSH PRN PRN PRN Reason: Heparin Heparin Sodium (Porcine) (Heparin -) 5,000 unit IVPUSH PRN PRN PRN Reason: Heparin Heparin Sodium (Porcine) 25, (000 unit/ Sodium Chloride) 500 mls @ 16 mls/hr IV TITR DENICE; 800 UNIT/HR PRN Reason: Protocol Last Admin: 09/23/17 08:22 Dose: 16 mls/hr Insulin Aspart (Novolog Vial Sliding Scale -) 1 vial SQ ACHS [facility] PRN Reason: Protocol Last Admin: 09/23/17 11:32 Dose: 2 units Losartan Potassium (Losartan Potassium) 100 mg PO DAILY [facility] Last Admin: 09/23/17 11:18 Dose: 100 mg Non-Formulary Medication (Colesevelam Hcl [Welchol]) 625 mg PO BID [facility] Laboratory Results - last 24 hr 09/22/17 09/22/17 09/22/17 08:30 23:45 23:45 WBC 6.5 D RBC 4.27 Hgb 12.9 D Hct 39.3 MCV 92.0 MCH 30.2 MCHC 32.8 RDW 14.4 Plt Count 365 D MPV 9.5 D Neutrophils % 73.8 D Lymphocytes % 18.8 D Monocytes % 6.7 Eosinophils % 0.3 D Basophils % 0.4 ESR PT with INR Cancelled INR Cancelled PTT (Actin FS) Cancelled VBG pH POC VBG pCO2 POC VBG pO2 Mixed VBG HCO3 Sodium Potassium Chloride Carbon Dioxide Anion Gap BUN Creatinine Creat Clearance w eGFR POC Glucometer Random Glucose Lactic Acid Calcium Phosphorus Magnesium Total Bilirubin AST ALT Alkaline Phosphatase Creatine Kinase Troponin I C-Reactive Protein Total Protein Albumin Urine Color Yellow Urine Appearance Cloudy Urine pH 5.0 Ur Specific [place] 1.025 Urine Protein Negative Urine Glucose (UA) Negative Urine Ketones Trace H Urine Blood Negative Urine Nitrite Negative Urine Bilirubin Negative Urine Urobilinogen Negative Ur Leukocyte Esterase Negative Stool Occult Blood Alcohol, Quantitative Blood Type Antibody Screen Spec Expiration Date 09/22/17 09/22/17 09/22/17 23:45 23:45 23:45 WBC RBC Hgb Hct MCV MCH MCHC RDW Plt Count MPV Neutrophils % Lymphocytes % Monocytes % Eosinophils % Basophils % ESR PT with INR INR PTT (Actin FS) VBG pH POC VBG pCO2 POC VBG pO2 Mixed VBG HCO3 Sodium Cancelled Potassium Cancelled Chloride Cancelled Carbon Dioxide Cancelled Anion Gap Cancelled BUN Cancelled Creatinine Cancelled Creat Clearance w eGFR Cancelled POC Glucometer Random Glucose Cancelled Lactic Acid Cancelled Calcium Cancelled Phosphorus Magnesium Total Bilirubin Cancelled AST Cancelled ALT Cancelled Alkaline Phosphatase Cancelled Creatine Kinase Cancelled Troponin I Cancelled C-Reactive Protein Total Protein Cancelled Albumin Cancelled Urine Color Urine Appearance Urine pH Ur Specific [place] Urine Protein Urine Glucose (UA) Urine Ketones Urine Blood Urine Nitrite Urine Bilirubin Urine Urobilinogen Ur Leukocyte Esterase Stool Occult Blood Alcohol, Quantitative Blood Type Cancelled Antibody Screen Cancelled Spec Expiration Date Cancelled 09/22/17 09/22/17 09/23/17 23:45 23:45 00:05 WBC RBC Hgb Hct MCV MCH MCHC RDW Plt Count MPV Neutrophils % Lymphocytes % Monocytes % Eosinophils % Basophils % ESR Cancelled PT with INR INR PTT (Actin FS) VBG pH 7.34 POC VBG pCO2 45.0 POC VBG pO2 37.2 Mixed VBG HCO3 23.3 Sodium Potassium Chloride Carbon Dioxide Anion Gap BUN Creatinine Creat Clearance w eGFR POC Glucometer Random Glucose Lactic Acid Calcium Phosphorus Magnesium Total Bilirubin AST ALT Alkaline Phosphatase Creatine Kinase Troponin I C-Reactive Protein Cancelled Total Protein Albumin Urine Color Urine Appearance Urine pH Ur Specific [place] Urine Protein Urine Glucose (UA) Urine Ketones Urine Blood Urine Nitrite Urine Bilirubin Urine Urobilinogen Ur Leukocyte Esterase Stool Occult Blood Alcohol, Quantitative Blood Type Antibody Screen Spec Expiration Date 09/23/17 09/23/17 09/23/17 02:05 02:05 02:05 WBC RBC Hgb Hct MCV MCH MCHC RDW Plt Count MPV Neutrophils % Lymphocytes % Monocytes % Eosinophils % Basophils % ESR 106 H PT with INR INR PTT (Actin FS) VBG pH POC VBG pCO2 POC VBG pO2 Mixed VBG HCO3 Sodium 138 Potassium 4.1 Chloride 101 Carbon Dioxide 25 Anion Gap 12 BUN 12 Creatinine 0.6 Creat Clearance w eGFR > 60 POC Glucometer Random Glucose 133 H Lactic Acid Calcium 9.2 Phosphorus Magnesium Total Bilirubin 0.5 D AST 17 D ALT 11 L D Alkaline Phosphatase 105 D Creatine Kinase Troponin I C-Reactive Protein 6.4 H Total Protein 8.5 H D Albumin 2.7 L Urine Color Urine Appearance Urine pH Ur Specific [place] Urine Protein Urine Glucose (UA) Urine Ketones Urine Blood Urine Nitrite Urine Bilirubin Urine Urobilinogen Ur Leukocyte Esterase Stool Occult Blood Alcohol, Quantitative Blood Type B POSITIVE Antibody Screen Negative Spec Expiration Date 09/23/17 09/23/17 09/23/17 02:05 02:05 02:05 WBC RBC Hgb Hct MCV MCH MCHC RDW Plt Count MPV Neutrophils % Lymphocytes % Monocytes % Eosinophils % Basophils % ESR PT with INR 12.20 H INR 1.08 PTT (Actin FS) 31.9 D VBG pH POC VBG pCO2 POC VBG pO2 Mixed VBG HCO3 Sodium 138 Potassium 4.1 Chloride 103 Carbon Dioxide 22 Anion Gap 13 BUN 12 Creatinine 0.7 Creat Clearance w eGFR POC Glucometer Random Glucose 131 H Lactic Acid Calcium 9.3 Phosphorus 3.2 Magnesium 1.8 D Total Bilirubin AST ALT Alkaline Phosphatase Creatine Kinase 38 Troponin I < 0.02 C-Reactive Protein Total Protein Albumin Urine Color Urine Appearance Urine pH Ur Specific [place] Urine Protein Urine Glucose (UA) Urine Ketones Urine Blood Urine Nitrite Urine Bilirubin Urine Urobilinogen Ur Leukocyte Esterase Stool Occult Blood Alcohol, Quantitative < 5.0 Blood Type Antibody Screen Spec Expiration Date 09/23/17 09/23/17 09/23/17 02:05 08:36 10:00 WBC 6.5 RBC 3.91 Hgb 11.9 Hct 36.1 MCV 92.3 MCH 30.4 MCHC 33.0 RDW 13.8 Plt Count 336 MPV 9.8 Neutrophils % 71.7 Lymphocytes % 17.8 Monocytes % 9.3 Eosinophils % 0.7 D Basophils % 0.5 ESR PT with INR INR PTT (Actin FS) VBG pH POC VBG pCO2 POC VBG pO2 Mixed VBG HCO3 Sodium Potassium Chloride Carbon Dioxide Anion Gap BUN Creatinine Creat Clearance w eGFR POC Glucometer 95.57531 Random Glucose Lactic Acid 1.9 Calcium Phosphorus Magnesium Total Bilirubin AST ALT Alkaline Phosphatase Creatine Kinase Troponin I C-Reactive Protein Total Protein Albumin Urine Color Urine Appearance Urine pH Ur Specific [place] Urine Protein Urine Glucose (UA) Urine Ketones Urine Blood Urine Nitrite Urine Bilirubin Urine Urobilinogen Ur Leukocyte Esterase Stool Occult Blood Alcohol, Quantitative Blood Type Antibody Screen Spec Expiration Date 09/23/17 09/23/17 09/23/17 10:00 11:40 16:20 WBC RBC Hgb Hct MCV MCH MCHC RDW Plt Count MPV Neutrophils % Lymphocytes % Monocytes % Eosinophils % Basophils % ESR PT with INR INR PTT (Actin FS) VBG pH POC VBG pCO2 POC VBG pO2 Mixed VBG HCO3 Sodium 139 Potassium 3.8 Chloride 103 Carbon Dioxide 26 Anion Gap 10 BUN 9 D Creatinine 0.6 Creat Clearance w eGFR POC Glucometer 115 Random Glucose 123 H Lactic Acid Calcium 8.7 Phosphorus 2.9 Magnesium 1.6 L Total Bilirubin AST ALT Alkaline Phosphatase Creatine Kinase Troponin I C-Reactive Protein Total Protein Albumin Urine Color Urine Appearance Urine pH Ur Specific [place] Urine Protein Urine Glucose (UA) Urine Ketones Urine Blood Urine Nitrite Urine Bilirubin Urine Urobilinogen Ur Leukocyte Esterase Stool Occult Blood Negative Alcohol, Quantitative Blood Type Antibody Screen Spec Expiration Date ASSESSMENT AND PLAN: 77 yof with PMhx of PVD/DVT on xarelto (not compliant), PVD admitted with robby- rectal/genital ulcerating mass. -Robby-rectal/Genital Ulcerating Mass -PVD -H/o DVT -HTN -NIDDM Plan: Surgery consulted with Dr. Fields, plan for biopsy on Tuesday. ID consulted with Dr. Meek, follow up recs. 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 Patient has not taken her xarelto since 2014, Vascular surgery consulted to address if full dose anti- coagulation warranted. Heparin drip for now, change per vascular recs.
[2017-09-23] MEDS ORDERED: MAGNESIUM SULF 50% (8.12 MEQ/2 ML-1 GM VIAL) IVPB ONE (16:15)
--- NOTE | 2017-09-23 16:34 | PN ---
Progress Note (short form) - Note Progress Note: Vascular Surgery Pt seen and examined. Doing well. Pt had angioplasty with stent in 2015. Right leg is doing good Warm, pink,. General surgery on case. Rayray Huynh DO
[2017-09-23 16:59] LABS: URINE LEUK ESTERASE Negative (NEGATIVE)
[2017-09-23] MEDS: CLINDAMYCIN HCL 150 MG CAPSULE (FP) PO SCH (17:21)
[2017-09-23] MEDS: AMOX TR/POT CLAV 875MG/125MG TABLETS (FP) PO SCH (17:21)
[2017-09-23] MEDS ORDERED: LORazepam 2 MG/ML SDV VIAL IVPUSH ONE (19:01)
[2017-09-23] MEDS ORDERED: INSULIN (NOVOLOG) ASPART 100 UNITS/ML 10ML VIAL ONE (20:36)
[2017-09-23] MEDS: ATORVASTATIN CA 20 MG TABLET (FP) PO SCH (21:42)
[2017-09-23] MEDS: HEPARIN NA (PORCINE) 5,000 UNITS/ML 1ML VIAL SQ SCH (21:42)
[2017-09-24] MEDS: CLINDAMYCIN HCL 150 MG CAPSULE (FP) PO SCH ×4 (00:33→18:06)
[2017-09-24] MEDS: INSULIN SLIDING SCALE (NOVOLOG) 1 VIAL SQ SCH ×4 (06:29→22:08)
[2017-09-24 07:24] LABS: EOSINOPHIL 1.2 % (0-4.5); MCH 30.4 pg (25.7-33.7); MCHC 32.8 g/dl (32.0-36.0); MEAN CELL VOLUME 92.6 fl (80-96); MEAN PLT VOLUME 10.5 fl (7.5-11.1); PLATELET COUNT 316 K/MM3 (134-434); RDW 13.7 % (11.6-15.6); WHITE BLOOD COUNT 4.9 K/mm3 (4.0-10.0)
[2017-09-24 07:53] LABS: ALBUMIN 2.2 g/dl (3.4-5.0); ANION GAP 11 (8-16); BILIRUBIN,TOTAL 0.5 mg/dL (0.2-1.0); CALCIUM 8.3 mg/dL (8.5-10.1); CO2 25 mmol/L (21-32); CREATININE 0.5 mg/dL (0.55-1.02); GLUCOSE,RANDOM 81 mg/dL (74-106); SGOT/AST 11 U/L (15-37); SGPT/ALT 9 U/L (12-78); TOT PROT 6.8 g/dl (6.4-8.2)
[2017-09-24 07:54] LABS: ALK PHOS 82 U/L (45-117)
[2017-09-24 07:57] LABS: PLATELET COMMENT2 NO CLUMPING NOTED; PLATELET ESTIMATE ADEQUATE (NORMAL)
[2017-09-24] MEDS: AMOX TR/POT CLAV 875MG/125MG TABLETS (FP) PO SCH ×2 (08:57→18:05)
[2017-09-24] MEDS: CARVEDILOL 6.25 MG TABLET (FP) PO SCH ×2 (10:03→21:17)
[2017-09-24] MEDS: HEPARIN NA (PORCINE) 5,000 UNITS/ML 1ML VIAL SQ SCH ×2 (11:03→21:16)
[2017-09-24] MEDS: CYANOCOBALAMIN 1,000 MCG TABLET (FP) PO SCH (11:03)
[2017-09-24] MEDS: LOSARTAN POTASSIUM 100 MG TABLET PO SCH (11:22)
--- NOTE | 2017-09-24 13:34 | PN ---
Teaching Attending Note Name of Resident: Phillip Daniel ATTENDING PHYSICIAN STATEMENT I saw and evaluated the patient. I reviewed the resident's note and discussed the case with the resident. I agree with the resident's findings and plan as documented. SUBJECTIVE: patient seen and examined, no new complaints. OBJECTIVE: Vital Signs Period Temp Pulse Resp BP Sys/Peralta Pulse Ox Last 24 Hr 97.8 F-98.1 F 55-66 16-18 145-167/57-80 98-100 Intake & Output 09/21/17 09/22/17 09/23/17 09/24/17 23:59 23:59 23:59 23:59 Intake Total 250 760 Output Total 200 900 800 Balance -200 -650 -40 Weight 110 lb 118 lb 9 oz General: in no acute distress CVS S1s2 regular Abdomen soft, NT, ND Genital/rectal exam deferred today ( no new symptoms) Current Medications Amoxicillin/Clavulanate Potassium (Augmentin - 875mg Tablet) 1 tab PO BID@0800, 1730 [facility] Last Admin: 09/24/17 08:57 Dose: 1 tab Atorvastatin Calcium (Lipitor -) 20 mg PO HS [facility] Last Admin: 09/23/17 21:42 Dose: 20 mg Carvedilol (Coreg -) 6.25 mg PO BID [facility] Last Admin: 09/24/17 10:03 Dose: 6.25 mg Clindamycin HCl (Cleocin -) 300 mg PO Q6HPO [facility] Last Admin: 09/24/17 11:04 Dose: 300 mg Cyanocobalamin (Vitamin B12 -) 1,000 mcg PO DAILY [facility] Last Admin: 09/24/17 11:03 Dose: 1,000 mcg Ergocalciferol (Drisdol -) 50,000 unit PO Q7D@1000 [facility] Last Admin: 09/23/17 11:45 Dose: 50,000 unit Heparin Sodium (Porcine) (Heparin -) 5,000 unit SQ BID [facility] Last Admin: 09/24/17 11:03 Dose: 5,000 unit Insulin Aspart (Novolog Vial Sliding Scale -) 1 vial SQ ACHS [facility] PRN Reason: Protocol Last Admin: 09/24/17 12:09 Dose: 3 units Losartan Potassium (Losartan Potassium) 100 mg PO DAILY [facility] Last Admin: 09/24/17 11:22 Dose: 100 mg Non-Formulary Medication (Colesevelam Hcl [Welchol]) 625 mg PO BID [facility] Laboratory Results - last 24 hr 09/22/17 09/23/17 09/23/17 08:30 10:00 16:20 WBC RBC Hgb Hct MCV MCH MCHC RDW Plt Count MPV Neutrophils % Lymphocytes % Monocytes % Eosinophils % Basophils % Platelet Estimate Platelet Comment Sodium Potassium Chloride Carbon Dioxide Anion Gap BUN Creatinine Creat Clearance w eGFR POC Glucometer 115 Random Glucose Hemoglobin A1c % 7.2 H Calcium Total Bilirubin AST ALT Alkaline Phosphatase Total Protein Albumin Urine Color Yellow Urine Appearance Cloudy Urine pH 5.0 Ur Specific [place] 1.025 Urine Protein Negative Urine Glucose (UA) Negative Urine Ketones Trace H Urine Blood Negative Urine Nitrite Negative Urine Bilirubin Negative Urine Urobilinogen Negative Ur Leukocyte Esterase Negative 09/23/17 09/24/17 09/24/17 21:47 06:00 06:00 WBC 4.9 RBC 3.84 Hgb 11.7 Hct 35.6 MCV 92.6 MCH 30.4 MCHC 32.8 RDW 13.7 Plt Count 316 MPV 10.5 Neutrophils % 56.0 D Lymphocytes % 33.6 D Monocytes % 8.2 Eosinophils % 1.2 Basophils % 1.0 Platelet Estimate Adequate Platelet Comment No clumping noted Sodium 142 Potassium 3.7 Chloride 106 Carbon Dioxide 25 Anion Gap 11 BUN 6 L D Creatinine 0.5 L Creat Clearance w eGFR > 60 POC Glucometer 130 Random Glucose 81 D Hemoglobin A1c % Calcium 8.3 L Total Bilirubin 0.5 AST 11 L D ALT 9 L Alkaline Phosphatase 82 D Total Protein 6.8 Albumin 2.2 L Urine Color Urine Appearance Urine pH Ur Specific [place] Urine Protein Urine Glucose (UA) Urine Ketones Urine Blood Urine Nitrite Urine Bilirubin Urine Urobilinogen Ur Leukocyte Esterase 09/24/17 09/24/17 06:28 11:56 WBC RBC Hgb Hct MCV MCH MCHC RDW Plt Count MPV Neutrophils % Lymphocytes % Monocytes % Eosinophils % Basophils % Platelet Estimate Platelet Comment Sodium Potassium Chloride Carbon Dioxide Anion Gap BUN Creatinine Creat Clearance w eGFR POC Glucometer 81 201 Random Glucose Hemoglobin A1c % Calcium Total Bilirubin AST ALT Alkaline Phosphatase Total Protein Albumin Urine Color Urine Appearance Urine pH Ur Specific [place] Urine Protein Urine Glucose (UA) Urine Ketones Urine Blood Urine Nitrite Urine Bilirubin Urine Urobilinogen Ur Leukocyte Esterase Wound cultures noted ASSESSMENT AND PLAN: 77 yof with PMhx of PVD/DVT on xarelto (not compliant), PVD admitted with robby- rectal/genital ulcerating mass. -Robby-rectal/Genital Ulcerating Mass -PVD -H/o DVT -HTN -NIDDM Plan: Surgery consulted with Dr. Fields, plan for biopsy on Tuesday. ID consulted with Dr. Meek, augmentin/clindamycin day 1. 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 Patient has not taken her xarelto since 2014, Vascular surgery consulted, discussed with Dr. Huynh, no need for full dose anti-coagulation now. Ideally would prefer patient on plavix but given active surgical issues, would hold off on the same for now. Heparin DVTPPx dose place.
--- NOTE | 2017-09-24 14:24 | PN ---
Progress Note, Physician History of Present Illness: Pt seen and examined. Chart, imaging, and lab results reviewed. Pt with history of DM, HTN, HLD, DVT presenting with bleeding and pain in perianal/vulvar region. Has had a mass in the perianal region for approximately 1 year. Today states she feels better, reports less pain. Had been constipated but had a BM today. - Current Medication List Current Medications: Active Medications Amoxicillin/Clavulanate Potassium (Augmentin - 875mg Tablet) 1 tab PO BID@0800, 1730 [facility] Last Admin: 09/24/17 08:57 Dose: 1 tab Atorvastatin Calcium (Lipitor -) 20 mg PO HS [facility] Last Admin: 09/23/17 21:42 Dose: 20 mg Carvedilol (Coreg -) 6.25 mg PO BID [facility] Last Admin: 09/24/17 10:03 Dose: 6.25 mg Clindamycin HCl (Cleocin -) 300 mg PO Q6HPO [facility] Last Admin: 09/24/17 11:04 Dose: 300 mg Cyanocobalamin (Vitamin B12 -) 1,000 mcg PO DAILY [facility] Last Admin: 09/24/17 11:03 Dose: 1,000 mcg Ergocalciferol (Drisdol -) 50,000 unit PO Q7D@1000 [facility] Last Admin: 09/23/17 11:45 Dose: 50,000 unit Heparin Sodium (Porcine) (Heparin -) 5,000 unit SQ BID [facility] Last Admin: 09/24/17 11:03 Dose: 5,000 unit Insulin Aspart (Novolog Vial Sliding Scale -) 1 vial SQ ACHS [facility] PRN Reason: Protocol Last Admin: 09/24/17 12:09 Dose: 3 units Losartan Potassium (Losartan Potassium) 100 mg PO DAILY [facility] Last Admin: 09/24/17 11:22 Dose: 100 mg Non-Formulary Medication (Colesevelam Hcl [Welchol]) 625 mg PO BID [facility] - Objective Vital Signs: Vital Signs Temperature 98.1 F 09/24/17 09:00 Pulse Rate 66 09/24/17 09:00 Respiratory Rate 18 09/24/17 09:00 Blood Pressure 149/80 09/24/17 09:00 O2 Sat by Pulse Oximetry (%) 98 09/24/17 09:00 Constitutional: Yes: No Distress, Calm Neck: Yes: WNL Cardiovascular: Yes: Regular Rate and Rhythm Respiratory: Yes: CTA Bilaterally Gastrointestinal: Yes: Normal Bowel Sounds, Soft ...Rectal Exam: Yes: Other (Perianal ulcerated mass/growth with erythema/ discomfort, Rt vulvar minimal edema/tenderness) Musculoskeletal: Yes: WNL Extremities: Yes: WNL Neurological: Yes: Alert, Oriented Psychiatric: Yes: Alert Labs: CBC, BMP 09/24/17 06:00 09/24/17 06:00 INR, PTT INR 1.08 (0.82-1.09) 09/23/17 02:05 - ....Imaging Cat Scan: Report Reviewed Problem List - Problems (1) Perirectal cellulitis Code(s): K61.1 - RECTAL ABSCESS (2) DVT (deep venous thrombosis) Code(s): I82.409 - ACUTE EMBOLISM AND THOMBOS UNSP DEEP VN UNSP LOWER EXTREMITY (3) HTN (hypertension) Code(s): I10 - ESSENTIAL (PRIMARY) HYPERTENSION (4) Hyperlipidemia Code(s): E78.5 - HYPERLIPIDEMIA, UNSPECIFIED Assessment/Plan DM Perianal ulcerated growth/vulvar tenderness Can not r/o superimposed cellulitis - continue oral antibiotics for now - for biopsy of lesion pt appears stable at this time
[2017-09-24] MEDS: ATORVASTATIN CA 20 MG TABLET (FP) PO SCH (21:16)
[2017-09-25] MEDS: CLINDAMYCIN HCL 150 MG CAPSULE (FP) PO SCH ×4 (00:01→19:01)
[2017-09-25] MEDS: INSULIN SLIDING SCALE (NOVOLOG) 1 VIAL SQ SCH ×4 (07:56→21:51)
--- NOTE | 2017-09-25 09:16 | PN ---
Progress Note (short form) - Note Progress Note: Attending Surgeon For bx. perianla/perineal/vulvar lesion(s) 09/26/17; r/b/t/a's d/w family and patient yesterday; informed consent obtained for OR 09/26/17. Robert Fields MD FACS
[2017-09-25] MEDS: CYANOCOBALAMIN 1,000 MCG TABLET (FP) PO SCH (11:07)
[2017-09-25] MEDS: HEPARIN NA (PORCINE) 5,000 UNITS/ML 1ML VIAL SQ SCH ×2 (11:07→21:50)
[2017-09-25] MEDS: AMOX TR/POT CLAV 875MG/125MG TABLETS (FP) PO SCH (11:07)
[2017-09-25] MEDS: CARVEDILOL 6.25 MG TABLET (FP) PO SCH ×2 (11:07→21:39)
[2017-09-25] MEDS: LOSARTAN POTASSIUM 100 MG TABLET PO SCH (11:08)
[2017-09-25] MEDS ORDERED: PT OWN MED DRAWER 7, Y5N ONE (13:27)
--- NOTE | 2017-09-25 15:20 | PN ---
Progress Note, Physician History of Present Illness: Pt seen and examined. States she feels "better",less pain, no bleeding. Unable to swallow augmentin pill. - Current Medication List Current Medications: Active Medications Atorvastatin Calcium (Lipitor -) 20 mg PO HS [facility] Last Admin: 09/24/17 21:16 Dose: 20 mg Carvedilol (Coreg -) 6.25 mg PO BID [facility] Last Admin: 09/25/17 11:07 Dose: 6.25 mg Cephalexin HCl (Keflex -) 500 mg PO BID [facility] Clindamycin HCl (Cleocin -) 300 mg PO Q6HPO [facility] Last Admin: 09/25/17 13:31 Dose: 300 mg Cyanocobalamin (Vitamin B12 -) 1,000 mcg PO DAILY [facility] Last Admin: 09/25/17 11:07 Dose: 1,000 mcg Ergocalciferol (Drisdol -) 50,000 unit PO Q7D@1000 [facility] Last Admin: 09/23/17 11:45 Dose: 50,000 unit Heparin Sodium (Porcine) (Heparin -) 5,000 unit SQ BID [facility] Last Admin: 09/25/17 11:07 Dose: 5,000 unit Insulin Aspart (Novolog Vial Sliding Scale -) 1 vial SQ ACHS [facility] PRN Reason: Protocol Last Admin: 09/25/17 12:55 Dose: Not Given Losartan Potassium (Losartan Potassium) 100 mg PO DAILY [facility] Last Admin: 09/25/17 11:08 Dose: 100 mg Non-Formulary Medication (Colesevelam Hcl [Welchol]) 625 mg PO BID [facility] - Objective Vital Signs: Vital Signs Temperature 98.2 F 09/25/17 10:00 Pulse Rate 73 09/25/17 10:00 Respiratory Rate 18 09/25/17 10:00 Blood Pressure 145/75 09/25/17 10:00 O2 Sat by Pulse Oximetry (%) 100 09/24/17 21:00 Constitutional: Yes: No Distress, Calm Cardiovascular: Yes: Regular Rate and Rhythm Respiratory: Yes: CTA Bilaterally Gastrointestinal: Yes: Normal Bowel Sounds, Soft ...Rectal Exam: Yes: Mass (perianal mass/growth pink, no purulence, no tender) Neurological: Yes: Alert, Oriented Labs: CBC, BMP 09/24/17 06:00 09/24/17 06:00 INR, PTT INR 1.08 (0.82-1.09) 09/23/17 02:05 Problem List - Problems (1) Perirectal cellulitis Code(s): K61.1 - RECTAL ABSCESS (2) DVT (deep venous thrombosis) Code(s): I82.409 - ACUTE EMBOLISM AND THOMBOS UNSP DEEP VN UNSP LOWER EXTREMITY (3) HTN (hypertension) Code(s): I10 - ESSENTIAL (PRIMARY) HYPERTENSION (4) Hyperlipidemia Code(s): E78.5 - HYPERLIPIDEMIA, UNSPECIFIED Assessment/Plan Perianal mass - r/o malignancy, HPV Possible overlying soft tissue infection - pt unable to swallow augmentin pills - switch to keflex, continue clindamycin for now - biopsy scheduled pt currently stable
[2017-09-25] MEDS: PATIENT'S OWN MEDICATION (NON-FORMULARY) (Colesevelam Hcl [Welchol] 625 MG) PO SCH ×4 (15:50→19:07)
--- NOTE | 2017-09-25 16:12 | PN ---
Teaching Attending Note Name of Resident: Phillip Daniel ATTENDING PHYSICIAN STATEMENT SUBJECTIVE: patient seen and examined, no new complaints. OBJECTIVE: Vital Signs Period Temp Pulse Resp BP Sys/Peralta Pulse Ox Last 24 Hr 98.2 F-99.5 F 70-85 18-20 99-173/50-75 100 Intake & Output 09/22/17 09/23/17 09/24/17 09/25/17 23:59 23:59 23:59 23:59 Intake Total 250 1820 110 Output Total 403 925 9570 400 Balance -200 -650 720 -290 Weight 110 lb 118 lb 9 oz General sleeping in bed, in no acute distress CVS S1s2 regular Chest CTAB, no rales or wheezing extremities no edema Current Medications Atorvastatin Calcium (Lipitor -) 20 mg PO HS [facility] Last Admin: 09/24/17 21:16 Dose: 20 mg Carvedilol (Coreg -) 6.25 mg PO BID [facility] Last Admin: 09/25/17 11:07 Dose: 6.25 mg Clindamycin HCl (Cleocin -) 300 mg PO Q6HPO [facility] Last Admin: 09/25/17 13:31 Dose: 300 mg Cyanocobalamin (Vitamin B12 -) 1,000 mcg PO DAILY [facility] Last Admin: 09/25/17 11:07 Dose: 1,000 mcg Ergocalciferol (Drisdol -) 50,000 unit PO Q7D@1000 [facility] Last Admin: 09/23/17 11:45 Dose: 50,000 unit Heparin Sodium (Porcine) (Heparin -) 5,000 unit SQ BID [facility] Last Admin: 09/25/17 11:07 Dose: 5,000 unit Insulin Aspart (Novolog Vial Sliding Scale -) 1 vial SQ ACHS [facility] PRN Reason: Protocol Last Admin: 09/25/17 12:55 Dose: Not Given Losartan Potassium (Losartan Potassium) 100 mg PO DAILY [facility] Last Admin: 09/25/17 11:08 Dose: 100 mg Piperacillin/Tazobactam/Dextrose (Zosyn 3.375gm Ivpb (Premix)) 3.375 gm IVPB Q8H-IV [facility] Laboratory Results - last 24 hr 09/23/17 09/24/17 09/24/17 11:30 13:30 22:06 POC Glucometer 164.66672 197 Magnesium 1.6 L 09/25/17 09/25/17 07:32 12:25 POC Glucometer 127 131 Magnesium Wound cultures with pansensitive Pseudomonas and proteus ASSESSMENT AND PLAN: 77 yof with PMhx of PVD/DVT on xarelto (not compliant), PVD admitted with robby- rectal/genital ulcerating mass. -Robby-rectal/Genital Ulcerating Mass -PVD -H/o DVT -HTN -NIDDM Plan: Surgery consulted with Dr. Fields, plan for biopsy tomorrow, NPO after midnight. ID input appreciated, wound cultures with pansensitive Pseudomonas and Proteus. Discussed with Dr. Ohara, recommended changing augmentin to zosyn in pre- operative period to avoid risk of bacteremia and transitioning to oral levaquin on discharge. Continue clindamycin. 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 Patient has not taken her xarelto since 2014, Vascular surgery consulted, discussed with Dr. Huynh, no need for full dose anti-coagulation now. Ideally would prefer patient on plavix but given active surgical issues, would hold off on the same for now. Heparin DVTPPx dose place. Anticipate d/c in 24 hours pending biopsy.
[2017-09-25] MEDS ORDERED: PIPERACIL/TAZOB 3.375 GM 3.375 GM/50 ML PREMIX IVPB SCH (18:00)
[2017-09-25] MEDS: PIPERACILLIN/TAZOB 3.375 GM 3.375 GM in DEXTROSE 5%-WATER - 50 ML IVPB SCH (20:27)
[2017-09-25] MEDS: ATORVASTATIN CA 20 MG TABLET (FP) PO SCH (21:39)
[2017-09-25] MEDS ORDERED: CEPHALEXIN MONOHYDRATE 500 MG CAPSULE (UD) PO SCH (22:00)
[2017-09-26] MEDS ORDERED: SODIUM CHLORIDE 1,000 ML IV SCH ×2 (00:01→13:27)
[2017-09-26] MEDS: CLINDAMYCIN HCL 150 MG CAPSULE (FP) PO SCH ×4 (00:17→17:40)
[2017-09-26] MEDS: PIPERACILLIN/TAZOB 3.375 GM 3.375 GM in DEXTROSE 5%-WATER - 50 ML IVPB SCH ×4 (02:45→17:47)
[2017-09-26] MEDS: INSULIN SLIDING SCALE (NOVOLOG) 1 VIAL SQ SCH ×4 (06:16→21:19)
[2017-09-26 07:18] LABS: BASOPHIL 0.4 % (0-2.0); EOSINOPHIL 0.4 % (0-4.5); MCH 30.6 pg (25.7-33.7); MCHC 33.6 g/dl (32.0-36.0); MEAN CELL VOLUME 91.1 fl (80-96); MEAN PLT VOLUME 9.3 fl (7.5-11.1); NEUTROPHILS 71.9 % (42.8-82.8); PLATELET COUNT 351 K/MM3 (134-434); RDW 13.8 % (11.6-15.6); WHITE BLOOD COUNT 7.9 K/mm3 (4.0-10.0)
--- NOTE | 2017-09-26 08:37 | PN ---
Physical Exam: SUBJECTIVE: Patient seen and examined at bedside. Patient is s/p biopsy in the OR. Denies any acute complaints. OBJECTIVE: Vital Signs Period Temp Pulse Resp BP Sys/Peralta Pulse Ox Last 24 Hr 97.8 F-99 F 55-85 18-20 99-152/50-75 99 GENERAL: The patient is awake, alert, and fully oriented, in no acute distress. LUNGS: Breath sounds equal, clear to auscultation bilaterally, no wheezes, no crackles, no accessory muscle use. HEART: Regular rate and rhythm, S1, S2 without murmur, rub or gallop. ABDOMEN: Soft, nontender, nondistended, normoactive bowel sounds, no guarding, no rebound, no hepatosplenomegaly, no masses. Laboratory Results - last 24 hr 09/25/17 09/25/17 09/25/17 12:25 17:50 21:35 WBC RBC Hgb Hct MCV MCH MCHC RDW Plt Count MPV Neutrophils % Lymphocytes % Monocytes % Eosinophils % Basophils % POC Glucometer 131 172 142 09/26/17 09/26/17 06:15 06:30 WBC 7.9 D RBC 3.77 Hgb 11.6 Hct 34.4 MCV 91.1 MCH 30.6 MCHC 33.6 RDW 13.8 Plt Count 351 MPV 9.3 D Neutrophils % 71.9 D Lymphocytes % 19.3 D Monocytes % 8.0 Eosinophils % 0.4 Basophils % 0.4 POC Glucometer 122 Active Medications Generic Name Dose Route Start Last Admin Trade Name Freq PRN Reason Stop Dose Admin Atorvastatin Calcium 20 mg 09/23/17 22:00 09/25/17 21:39 Lipitor - PO 20 mg HS [facility] Administration Carvedilol 6.25 mg 09/23/17 10:00 09/25/17 21:39 Coreg - PO 6.25 mg BID [facility] Administration Clindamycin HCl 300 mg 09/23/17 18:00 09/26/17 05:46 Cleocin - PO 300 mg Q6HPO [facility] Administration Cyanocobalamin 1,000 mcg 09/23/17 10:00 09/25/17 11:07 Vitamin B12 - PO 1,000 mcg DAILY [facility] Administration Ergocalciferol 50,000 unit 09/23/17 10:00 09/23/17 11:45 Drisdol - PO 50,000 unit Q7D@1000 [facility] Administration Heparin Sodium (Porcine) 5,000 unit 09/23/17 22:00 09/25/17 21:50 Heparin - SQ Not Given BID [facility] Piperacillin Sod/Tazobactam 50 mls @ 100 mls/hr 09/25/17 18:00 09/26/17 02:45 Sod 3.375 gm/ Dextrose IVPB 100 mls/hr Q8H-IV [facility] Administration Sodium Chloride 1,000 mls @ 50 mls/hr 09/26/17 00:01 09/26/17 00:17 Normal Saline - IV 50 mls/hr ASDIR [facility] Administration Insulin Aspart 1 vial 09/23/17 07:00 09/26/17 06:16 Novolog Vial Sliding Scale - SQ Not Given ACHS [facility] Protocol Losartan Potassium 100 mg 09/23/17 10:00 09/25/17 11:08 Losartan Potassium PO 100 mg DAILY [facility] Administration CBC, BMP 09/26/17 06:30 09/24/17 06:00 ASSESSMENT/PLAN: 77 year old female with a pmh of DM, HTN, HLD, DVT, PAD presents with perineal mass and failure to thrive. Patient was scheduled for a biopsy of her perineal mass otday. 1. 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 Ohara, can be d/c'd on oral augmentin 500 BID and levoquin 750 QID for 10 days 2. Failure to Thrive: -add Ensure to meals 3. Diabetes Mellitus: blood sugars controlled -insulin sliding scale to control BG -f/u A1C 4. Hypertension: Controlled -cont coreg + irbesartan 5. DVT and Stent hx -f/u vascular surgery consult -heparin 5000 IV push 6. Hyperlipidemia: restart home lipitor 7. FEN: -no standing fluids -mag low- replete -ensures added to diabetic diet 8. Proph: -heparin 9. Dispo: -monitor inpatient -plan for NPO Tuesday to be taken to OR tuesday Visit type - Emergency Visit Emergency Visit: No - New Patient This patient is new to me today: No - Critical Care Critical Care patient: No
[2017-09-26] MEDS ORDERED: PT OWN MED DRAWER 7, Y5N ONE ×2 (08:57→09:11)
[2017-09-26] MEDS: CYANOCOBALAMIN 1,000 MCG TABLET (FP) PO SCH (09:32)
[2017-09-26] MEDS: CARVEDILOL 6.25 MG TABLET (FP) PO SCH ×2 (09:32→21:18)
[2017-09-26] MEDS: LOSARTAN POTASSIUM 100 MG TABLET PO SCH (09:37)
[2017-09-26] MEDS ORDERED: LOSARTAN POTASSIUM 50 MG TABLET (FP) PO SCH (10:30)
[2017-09-26] MEDS ORDERED: LIDOCAINE HCL 1%, 10 MG/ML (20ML VIAL) ONE (11:40)
[2017-09-26] MEDS ORDERED: LIDOCAINE 1%/EPI 1:100000 (20 ML MULTI DOSE VIAL) ONE (11:40)
[2017-09-26] MEDS ORDERED: BUPIVACAINE HCL/PF 0.5% (5MG/ML) 10 ML VIAL ONE (11:40)
[2017-09-26] MEDS ORDERED: LIDOCAINE HCL/PF 2% SDV 5ML VIAL ONE (12:03)
[2017-09-26] MEDS ORDERED: PROPOFOL 20 ML ONE ×2 (12:03→12:24)
[2017-09-26] MEDS ORDERED: ePHEDrine SULFATE 50 MG/1 ML AMPULE ONE (12:08)
[2017-09-26] MEDS ORDERED: SUCCINYLCHOLINE CHLORIDE 200 MG/10 ML VIAL ONE (12:24)
[2017-09-26] MEDS ORDERED: DEXAMETHASONE SOD PHOSPHATE 4 MG/1 ML VIAL ONE (12:28)
[2017-09-26] MEDS ORDERED: ONDANSETRON 4 MG/2 ML VIAL IVPUSH PRN ×2 (12:44→13:27)
--- NOTE | 2017-09-26 12:48 | PN ---
Progress Note, Physician History of Present Illness: stable going for or today - Current Medication List Current Medications: Active Medications Atorvastatin Calcium (Lipitor -) 20 mg PO HS [facility] Last Admin: 09/25/17 21:39 Dose: 20 mg Carvedilol (Coreg -) 6.25 mg PO BID [facility] Last Admin: 09/26/17 09:32 Dose: 6.25 mg Clindamycin HCl (Cleocin -) 300 mg PO Q6HPO [facility] Last Admin: 09/26/17 12:18 Dose: Not Given Cyanocobalamin (Vitamin B12 -) 1,000 mcg PO DAILY [facility] Last Admin: 09/26/17 09:32 Dose: 1,000 mcg Ergocalciferol (Drisdol -) 50,000 unit PO Q7D@1000 [facility] Last Admin: 09/23/17 11:45 Dose: 50,000 unit Heparin Sodium (Porcine) (Heparin -) 5,000 unit SQ BID [facility] Last Admin: 09/25/17 21:50 Dose: Not Given Piperacillin Sod/Tazobactam (Sod 3.375 gm/ Dextrose) 50 mls @ 100 mls/hr IVPB Q8H-IV [facility] Last Admin: 09/26/17 09:29 Dose: 100 mls/hr Sodium Chloride (Normal Saline -) 1,000 mls @ 50 mls/hr IV ASDIR [facility] Last Admin: 09/26/17 00:17 Dose: 50 mls/hr Insulin Aspart (Novolog Vial Sliding Scale -) 1 vial SQ ACHS [facility] PRN Reason: Protocol Last Admin: 09/26/17 12:17 Dose: Not Given Losartan Potassium (Cozaar -) 100 mg PO DAILY [facility] Last Admin: 09/26/17 12:17 Dose: Not Given - Objective Vital Signs: Vital Signs Temperature 97.8 F 09/26/17 08:30 Pulse Rate 55 L 09/26/17 08:30 Respiratory Rate 18 09/26/17 08:30 Blood Pressure 152/71 09/26/17 08:30 O2 Sat by Pulse Oximetry (%) 99 09/25/17 20:49 Constitutional: Yes: No Distress, Calm Cardiovascular: Yes: Regular Rate and Rhythm Respiratory: Yes: Regular, CTA Bilaterally Gastrointestinal: Yes: Normal Bowel Sounds, Soft Genitourinary: Yes: Baez Present Musculoskeletal: Yes: Other Neurological: Yes: Alert Psychiatric: Yes: Alert Labs: CBC, BMP 09/26/17 06:30 09/24/17 06:00 INR, PTT INR 1.08 (0.82-1.09) 09/23/17 02:05 Assessment/Plan this patient with multiple medical problems who comes with perianal mass with bleeding,currently stable this could be several things which include malignancy condyloma possibly scc plan conitnue current abx biopsy today
--- NOTE | 2017-09-26 13:19 | OP ---
Operative Note - Note: Operative Date: 09/26/17 Pre-Operative Diagnosis: perianl/perineal/vulvar lesion(s) Operation: exam under anesthesia and incisional bx.of perianal and perineal lesion. Findings: extensive perianal and perineal wart like growth Post-Operative Diagnosis: Same as Pre-op Surgeon: Robert Fields Anesthesiologist/ADOLESCENT PSYCHIATRIST: Severiano Ellison Anesthesia: General Specimens Removed: incisional bx. perineal/perianal mass Estimated Blood Loss (mls): 10
--- NOTE | 2017-09-26 15:08 | PN ---
Teaching Attending Note Name of Resident: Jg Babcock ATTENDING PHYSICIAN STATEMENT Time of evaluation: 10:15 AM I saw and evaluated the patient. I reviewed the resident's note and discussed the case with the resident. I agree with the resident's findings and plan as documented. SUBJECTIVE: Patient seen and examined. no complaints, awaiting biopsy. OBJECTIVE: Vital Signs Period Temp Pulse Resp BP Sys/Peralta Pulse Ox Last 24 Hr 97.5 F-99 F 54-85 14-20 99-158/45-71 94-100 Intake & Output 09/23/17 09/24/17 09/25/17 09/26/17 23:59 23:59 23:59 23:59 Intake Total 250 1820 110 900 Output Total 900 1100 500 635 Balance -650 720 -390 265 Weight 118 lb 9 oz General: lying in bed in no acute distress CVS S1S2 regular chest CTAB, no rales or wheezing abdomen soft, NT, ND, positive bowel sounds Current Medications Atorvastatin Calcium (Lipitor -) 20 mg PO HS [facility] Carvedilol (Coreg -) 6.25 mg PO BID [facility] Clindamycin HCl (Cleocin -) 300 mg PO Q6HPO [facility] Cyanocobalamin (Vitamin B12 -) 1,000 mcg PO DAILY [facility] Ergocalciferol (Drisdol -) 50,000 unit PO Q7D@1000 [facility] Fentanyl (Sublimaze Injection -) 25 mcg IVPUSH [id number] PRN PRN Reason: PAIN Stop: 09/29/17 12:45 Heparin Sodium (Porcine) (Heparin -) 5,000 unit SQ BID [facility] Sodium Chloride (Normal Saline -) 1,000 mls @ 50 mls/hr IV ASDIR [facility] Piperacillin Sod/Tazobactam (Sod 3.375 gm/ Dextrose) 50 mls @ 100 mls/hr IVPB Q8H-IV [facility] Insulin Aspart (Novolog Vial Sliding Scale -) 1 vial SQ ACHS [facility] PRN Reason: Protocol Losartan Potassium (Cozaar -) 100 mg PO DAILY [facility] Ondansetron HCl (Zofran Injection) 4 mg IVPUSH Q6H PRN PRN Reason: NAUSEA AND/OR VOMITING Stop: 09/26/17 18:45 Laboratory Results - last 24 hr 09/25/17 09/25/17 09/26/17 17:50 21:35 06:15 WBC RBC Hgb Hct MCV MCH MCHC RDW Plt Count MPV Neutrophils % Lymphocytes % Monocytes % Eosinophils % Basophils % POC Glucometer 172 142 122 09/26/17 06:30 WBC 7.9 D RBC 3.77 Hgb 11.6 Hct 34.4 MCV 91.1 MCH 30.6 MCHC 33.6 RDW 13.8 Plt Count 351 MPV 9.3 D Neutrophils % 71.9 D Lymphocytes % 19.3 D Monocytes % 8.0 Eosinophils % 0.4 Basophils % 0.4 POC Glucometer ASSESSMENT AND PLAN: 77 yof with PMhx of PVD/DVT on xarelto (not compliant), PVD admitted with robby- rectal/genital ulcerating mass. -Robby-rectal/Genital Ulcerating Mass -PVD -H/o DVT -HTN -NIDDM Plan: Plan for biopsy today. Wound cultures with pseudomonas and proteus. Preoperative zosyn/clindamycin per ID. Will discuss to transition to oral levaquin/?clindamycin for d/c. Will need outpatient follow up arranged to follow up on biopsy results and ID vs heme/onc and surgery referral accordingly. Discussed with vascular surgery on admission, no indication for continuing full dose anti-coagulation on discharge. PT Eval. Anticipate d/c in 24 hours on oral antibiotics if safe disposition arranged and no new events.
[2017-09-26] MEDS ORDERED: INSULIN (NOVOLOG) ASPART 100 UNITS/ML 10ML VIAL ONE (21:11)
[2017-09-26] MEDS: HEPARIN NA (PORCINE) 5,000 UNITS/ML 1ML VIAL SQ SCH (21:18)
[2017-09-26] MEDS ORDERED: ATORVASTATIN CA 20 MG TABLET (FP) PO SCH (22:00)
[2017-09-27] MEDS: CLINDAMYCIN HCL 150 MG CAPSULE (FP) PO SCH ×3 (00:47→12:16)
[2017-09-27] MEDS: PIPERACILLIN/TAZOB 3.375 GM 3.375 GM in DEXTROSE 5%-WATER - 50 ML IVPB SCH ×2 (02:43→12:18)
[2017-09-27] MEDS: INSULIN SLIDING SCALE (NOVOLOG) 1 VIAL SQ SCH ×2 (06:30→12:16)
[2017-09-27] MEDS ORDERED: INSULIN (NOVOLOG) ASPART 100 UNITS/ML 10ML VIAL ONE ×2 (06:59→12:10)
--- NOTE | 2017-09-27 09:30 | PN ---
Progress Note (short form) - Note Progress Note: Attending Surgeon POD #1 No c/o; having BM's; sitting in chair; dressing in place a/t RN VSS AF perineal dressing (Gregory shield) in place IMP: stable post op PLAN: PRN sitz baths; await bx. report re definitive if any tx. Robert Fields MD FACS
--- NOTE | 2017-09-27 09:33 | PN ---
Progress Note (short form) - Note Progress Note: Anesthesia POD#1 S/P Incisional Biopsy of perineal mass under GA VSS,no N/V,pain is under control Martha Gonsalez MD.
[2017-09-27] MEDS ORDERED: LOSARTAN POTASSIUM 50 MG TABLET (FP) PO SCH (10:00)
[2017-09-27] MEDS ORDERED: CYANOCOBALAMIN 1,000 MCG TABLET (FP) PO SCH (10:00)
[2017-09-27 10:37] VITALS: BP 136/67; PULSE 56; TEMP 97.8
--- NOTE | 2017-09-27 11:28 | OP ---
DATE OF OPERATION: 09/26/2017 PREOPERATIVE DIAGNOSIS: Extensive perianal and perineal skin lesion. POSTOPERATIVE DIAGNOSIS: Extensive perianal and perineal skin lesion. PROCEDURES: 1. Examination under anesthesia. 2. Incisional biopsy perianal perineal skin lesion. SURGEON: Robert Fields MD. ANESTHESIA: General. PROCEDURE IN DETAIL: The patient was placed on the operating table in the supine position. After induction of general anesthesia the patient was placed in the dorsal lithotomy position. The perineum and perianal area were prepped with Betadine and draped in sterile fashion. Examination under anesthesia was carried out showing an extensive perianal and perineal skin lesion more toward the right side of the midline. There was hypertrophic perianal skin lesions of unknown origin. There was decreased rectal sphincter tone. The rest of the findings were unremarkable. Using electrocautery, technical sales representatives portion of the extensive lesion was excised and sent for pathological examination in fresh state. Hemostasis was secured with electrocautery and Surgicel dressing. Once adequate hemostasis was secured, dry sterile dressings were placed and a perineal dressing. The patient was aroused from general anesthesia and transferred to the Post-Anesthesia Car Unit in stable condition awake and alert. ESTIMATED BLOOD LOSS: Minimal. DRAINS: None. SPECIMEN: Portion of the perianal lesion to Pathology. I, David Fields, was physically present in the operating room from the time the patient was placed on the operating table until she was transferred to the Post-Anesthesia Care Unit in [employer]. MD RAYMOND Garzon/[id number]
[2017-09-27] MEDS ORDERED: PT OWN MED DRAWER 7, Y5N ONE (12:13)
[2017-09-27] MEDS: CARVEDILOL 6.25 MG TABLET (FP) PO SCH (12:16)
[2017-09-27] MEDS: HEPARIN NA (PORCINE) 5,000 UNITS/ML 1ML VIAL SQ SCH (12:18)
--- NOTE | 2017-09-27 13:33 | DS ---
Physical Exam: SUBJECTIVE: Patient seen and examined at bedside. Patient's anderson is removed and she reports being able to void. Patient denies chest pain, SOB, nausea, vomiting ,diarrhea. OBJECTIVE: Vital Signs Period Temp Pulse Resp BP Sys/Peralta Pulse Ox Last 24 Hr 96.7 F-97.8 F 47-60 14-19 115-158/45-67 94-97 PHYSICAL EXAM GENERAL: The patient is awake, alert, and fully oriented, in no acute distress. HEAD: Normal with no signs of trauma. EYES: PERRL, extraocular movements intact, sclera anicteric, conjunctiva clear. No ptosis. LUNGS: Breath sounds equal, clear to auscultation bilaterally, no wheezes, no crackles, no accessory muscle use. HEART: Regular rate and rhythm, S1, S2 without murmur, rub or gallop. ABDOMEN: Soft, nontender, nondistended, normoactive bowel sounds, no guarding, no rebound, no hepatosplenomegaly, no masses. EXTREMITIES: 2+ pulses, warm, well-perfused, no edema. Urogenital: large, 4-5 cm fungating, friable mass located on the perineal region. The majority of the mass is located on the R side of gluteal cleft and loops around the anus to the other L side. She has masses arising inside the anus as well LABS Laboratory Results - last 24 hr 09/26/17 09/26/17 09/27/17 16:38 21:19 06:30 POC Glucometer 136 207 151 09/27/17 12:08 POC Glucometer 180 HOSPITAL COURSE: Date of Admission:09/23/17 77 year old female with a pmh DM, HTN, HLD, DVT, PAD, s/p superficial femoral artery angioplasty and stent placement in 2014 presented for a 1 year history of mass and ulceration in the perianal region and sacral wound. Patient was admitted to the hospital for biopsy of the mass. Biopsy of the mass was performed on 09/27/[address] Fields. Patient was informed to follow up with Dr. Fields outpatient for discussion of the biopsy results. During patient's hospitalization, cultures were taken of the sacral wound, which grew Pseudomonas and Proteus sp. Patient was treated with zosyn for [address] Ohara recommended an outpatient course of antibiotics with augmentin and levoquin. Patient reported being able to void on her own, and she was discharged home on oral antibiotics to follow up with Dr. Fields. Patient was instructed to use Sitz baths for care of her wound. Family informed. 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 You had a biopsy of the mass performed by Dr. Fields. Please follow up with Dr. Fields outpatient to discuss results of the biopsy. Please picker feeder the following antibiotics at your pharmacy and take at home: 1. Levofloxacin 750mg once a day for 10 days 2. Augmentin 500mg twice a day for 10 days Please picker feeder from the pharmacy and take the following medication to prevent blood clots: 1. Plavix 75mg once daily -Please follow up with Vascular surgery - Dr. Rayray Huynh for peripheral arterial disease Please follow up with your primary care physician within 2 days of discharge, or if you don't have one, please visit [facility] [address] [place] [address] Referrals: Robert Fields MD [Staff Physician] - STAFF,NOT ON [Primary Care Provider] - Rayray Huynh MD [Staff Physician] - Disposition: VNS/HOME HEALTH CARE - Home Medications Comprehensive Discharge Medication List: Ambulatory Orders Carvedilol [Coreg] 6.25 mg PO BID 12/17/14 Colesevelam HCl [Welchol] 625 mg PO BID 12/17/14 Cyanocobalamin [Vitamin B12 -] 1,000 mcg PO DAILY 12/17/14 Ergocalciferol (Vitamin D2) [Vitamin D2] 50,000 unit PO WEEKLY 12/17/14 Furosemide [Lasix -] 20 mg PO DAILY 12/17/14 Irbesartan 300 mg PO DAILY 12/17/14 Metformin HCl 850 mg PO DAILY 12/17/14 Risedronate Sodium [Actonel (Once-a-week)] 35 mg PO Q7D 12/17/14 Sitagliptin Phosphate [Januvia] 100 mg PO DAILY 12/17/14 Nicotine Patch [Nicoderm Patch -] 14 mg TD DAILY #30 patch 12/27/14 Rivaroxaban [Xarelto -] 15 mg PO BID #42 tab 12/27/14 Atorvastatin Ca [Lipitor] 20 mg NR ASDIR 09/22/17 Amox-Tr/K Cl [Augmentin - 500Mg Tablet] 1 tab PO BID #20 tablet 09/27/17 Levofloxacin 750 mg PO DAILY #10 tablet 09/27/17 This patient is new to me today: No Emergency Visit: No Critical Care patient: No - Discharge Referral Referred to [facility] Med P.C.: No
--- NOTE | 2017-09-27 14:21 | PN ---
Progress Note, Physician History of Present Illness: doing well stable no new issues - Current Medication List Current Medications: Active Medications Atorvastatin Calcium (Lipitor -) 20 mg PO HS [facility] Last Admin: 09/26/17 21:18 Dose: 20 mg Carvedilol (Coreg -) 6.25 mg PO BID [facility] Last Admin: 09/27/17 12:16 Dose: 6.25 mg Clindamycin HCl (Cleocin -) 300 mg PO Q6HPO [facility] Last Admin: 09/27/17 12:16 Dose: 300 mg Cyanocobalamin (Vitamin B12 -) 1,000 mcg PO DAILY [facility] Last Admin: 09/27/17 12:16 Dose: 1,000 mcg Ergocalciferol (Drisdol -) 50,000 unit PO Q7D@1000 [facility] Fentanyl (Sublimaze Injection -) 25 mcg IVPUSH [id number] PRN PRN Reason: PAIN Stop: 09/29/17 12:45 Heparin Sodium (Porcine) (Heparin -) 5,000 unit SQ BID [facility] Last Admin: 09/27/17 12:18 Dose: 5,000 unit Sodium Chloride (Normal Saline -) 1,000 mls @ 50 mls/hr IV ASDIR [facility] Last Admin: 09/26/17 14:00 Dose: 50 mls/hr Piperacillin Sod/Tazobactam (Sod 3.375 gm/ Dextrose) 50 mls @ 100 mls/hr IVPB Q8H-IV [facility] Last Admin: 09/27/17 12:18 Dose: 100 mls/hr Insulin Aspart (Novolog Vial Sliding Scale -) 1 vial SQ ACHS [facility] PRN Reason: Protocol Last Admin: 09/27/17 12:16 Dose: 2 units Losartan Potassium (Cozaar -) 100 mg PO DAILY [facility] Last Admin: 09/27/17 12:16 Dose: 100 mg - Objective Vital Signs: Vital Signs Temperature 97.8 F 09/27/17 08:00 Pulse Rate 56 L 09/27/17 08:00 Respiratory Rate 18 09/27/17 08:00 Blood Pressure 136/67 09/27/17 08:00 O2 Sat by Pulse Oximetry (%) 96 09/27/17 09:00 Constitutional: Yes: No Distress, Calm Cardiovascular: Yes: Regular Rate and Rhythm Respiratory: Yes: Regular, CTA Bilaterally Gastrointestinal: Yes: Normal Bowel Sounds, Soft Musculoskeletal: Yes: Other Extremities: Yes: Other Neurological: Yes: Alert, Oriented Psychiatric: Yes: Alert Labs: CBC, BMP 09/26/17 06:30 09/24/17 06:00 INR, PTT INR 1.08 (0.82-1.09) 09/23/17 02:05 Assessment/Plan this patient with multiple medical problems who comes with perianal mass with bleeding,currently stable this could be several things which include malignancy condyloma possibly scc plan abx can be changed to augmentin for 7 days and levaquin for 7 days
--- NOTE | 2017-09-27 20:34 | PN ---
Teaching Attending Note Name of Resident: Jg Babcock ATTENDING PHYSICIAN STATEMENT I saw and evaluated the patient. I reviewed the resident's note and discussed the case with the resident. I agree with the resident's findings and plan as documented. SUBJECTIVE: OBJECTIVE: Vital Signs Period Temp Pulse Resp BP Sys/Peralta Pulse Ox Last 24 Hr 97.4 F-97.8 F 47-60 18-19 115-136/45-67 96-97 ASSESSMENT AND PLAN:
--- NOTE | 2017-09-28 12:19 | PATH ---
Surgical Pathology Report Patient Name: AYSE GERBER [facility]. Rec. #: [id number] /Age/Gender: 1940 (Age: 77) / F Account: [id number] Location: [address] [place] [address]/[facility] Taken: 09/26/2017 Received: 09/26/2017 Reported: 09/28/2017 Physicians: Robert Fields MD Specimen(s) Received BX PERINEAL MASS Clinical History Fungating lesion of perineum/perianal area of unknown duration Final Diagnosis PERINEUM, MASS, EXCISIONAL BIOPSY: INVASIVE SQUAMOUS CELL CARCINOMA, KERATINIZING TYPE, MODERATELY DIFFERENTIATED FOCALLY EXTENDING TO CAUTERIZED SURGICAL MARGINS. LYMPHOVASCULAR INVASION IDENTIFIED. COMMENT: Findings relayed to Maurizio from Dr. Fields's office. Immunostain stain for p16 and in situ hybridization for high risk HPV are pending and will be signed out as an addendum. Electronically Signed Margaret Galeas M.D. Addendum Reported: 09/29/2017 Addendum Diagnosis Immunohistochemical stain for p16 and In situ hybridization for high risk HPV (16/18) performed and interpreted at [facility], [place], [place] ([id number]) shows the following: HPV micah (16/18): Positive. P16: Positive (diffuse and strong) See Emer[facility] report for details. Margaret Galeas M.D. Gross Description Received fresh labeled "perineal mass biopsy," is a 2.7 x 1.5 x 1.5 cm green-yellow, irregular, unoriented portion of soft tissue. There is no skin present. The specimen is inked blue and serially sectioned. Sectioning reveals homogeneous green-white fibrous tissue. The specimen is entirely and sequentially submitted in 3 cassettes. DL/09/26/2017 saudi/09/26/2017
[2017-09-30] MEDS ORDERED: ERGOCALCIFEROL (VITAMIN D2) 50,000 UNIT CAPSULE (FP) PO SCH (10:00)
== END 2017-09-27 15:30 | disposition home health service (06) | DRG 746 ==
LOC: JERFT 17:42 → JERBED 09-23 03:17 → UNDOADMIN 09-23 04:00 → J8W 09-23 13:36 → J6S 09-25 19:28
PROVIDERS: ADMIT Internal Medicine; ATTEND Internal Medicine
PROC: 0WBNXZX Excision of Female Perineum, External Approach, Diagnostic (ICD-10-PCS; principal; 2017-09-26 11:00)
DX: C76.3 Malignant neoplasm of pelvis (principal); K61.1 Rectal abscess; F10.230 Alcohol dependence with withdrawal, uncomplicated; E46 Unspecified protein-calorie malnutrition; Z68.1 Body mass index [BMI] 19.9 or less, adult; K66.8 Other specified disorders of peritoneum; I10 Essential (primary) hypertension; E78.5 Hyperlipidemia, unspecified; E11.9 Type 2 diabetes mellitus without complications; I73.89 Other specified peripheral vascular diseases; Z86.718 Personal history of other venous thrombosis and embolism; F17.210 Nicotine dependence, cigarettes, uncomplicated; R62.7 Adult failure to thrive; M81.8 Other osteoporosis without current pathological fracture
CPT/HCPCS: 36415; 71010-TC; 74176-TC; 80048; 80053; 80307; 81003; 82272; 82550; 82803; 83036; 83605; 83735; 84100; 84484; 85025; 85610; 85651; 85730; 86140; 86850; 86900; 86901; 87040; 87070; 87086; 87186; 87205; 88307-TC; 93005; 93010; 94760; 97116-GP; 97161-GP; 99285-25; J1644